=== PATIENT | male | born 1955 | race Caucasian/White ===

== ENCOUNTER 2018-02-11 00:34 | Inpatient (IN) | payer MEDICARE, OTHER ==
[~2018-02-11] VITALS: Ht 167.6 cm; Wt 92.5 kg
[2018-02-11] VITALS (9 sets, daily range): BP systolic 91–149; BP diastolic 63–88
[~2018-02-11 00:34] MED LIST: BACL10TA PO; CLON0.1T14 PO; CLOP75TA15 PO; ISOS60TA6 PO; LISI40TA4 PO; NEBI5TAB8 PO; NITR0.4T48 SL; OMEP20CA4 PO; RANO10003 PO; SIMV40TA5 PO; VALS160T2 PO
--- NOTE | 2018-02-11 00:40 | NUR ---
62 YO MALE BB SELF. PATIENT IS ALERT AND ORIENTED X 3, C/O CHEST PAIN. PATIENT AMBULATED TO ER BED, SKIN WARM AND DRY, RESP EVEN AND UNLABORED. AWAITING ORDERS FROM PROVIDER, WILL CONTINUE TO MONITOR
[2018-02-11] MEDS ORDERED: ASPIRIN 325 MG TABLET ONE (00:43)
[2018-02-11] MEDS ORDERED: ASPIRIN 325 MG TABLET PO ONE (01:00)
[2018-02-11 02:49] LABS: BASOPHILS % (AUTO) 0.3 % (0.0-2.0); EOSINOPHILS # (AUTO) 0.1 /CMM (0.0-0.7); EOSINOPHILS % (AUTO) 2.1 % (0.0-6.0); HEMATOCRIT 31 % (39-51); HEMOGLOBIN 10.2 g/dL (13.5-17.5); LYMPHOCYTES # (AUTO) 0.7 /CMM (0.8-4.8); LYMPHOCYTES % (AUTO) 15.4 % (20.0-44.0); MEAN CORPUSCULAR HEMOGLOBIN 25 PG (26.0-33.0); MEAN CORPUSCULAR HGB CONC 33 g/dl (31.0-36.0); MEAN CORPUSCULAR VOLUME 75 fL (80-96); MONOCYTES # (AUTO) 0.5 /CMM (0.1-1.30); MONOCYTES % (AUTO) 12.2 % (2.0-12.0); PLATELET COUNT (AUTO) 148 /CMM (150-450); RDW COEFFICIENT OF VARIATION 19.5 (11.5-15.0); RED BLOOD CELL COUNT(AUTO) 4.13 MIL/uL (4.5-6.0); WHITE BLOOD COUNT (AUTO) 4.3 K/uL (4.3-11.0)
[2018-02-11 02:59] LABS: CALCIUM, SERUM 8.6 mg/dL (8.5-10.1); CARBON DIOXIDE 24 mmol/L (21-32); CHLORIDE 105 mmol/L (98-107); CREATININE 1.2 mg/dL (0.6-1.3); GLUCOSE 98 mg/dL (74-106); POTASSIUM 3.8 mmol/L (3.5-5.1); SODIUM SERUM 136 mmol/L (136-145); UREA NITROGEN, BLOOD 24 mg/dL (7-18)
[2018-02-11 03:03] LABS: INR 1.03 (0.87-1.13)
[2018-02-11 03:07] LABS: TROPONIN I < 0.017 ng/mL (0.00-0.056)
[2018-02-11 03:11] LABS: B-TYPE NATRIURETIC PEPTIDE 54 PG/ML (0-125)
--- NOTE | 2018-02-11 03:24 | NUR ---
REPORT GIVEN TO RN FOR DANII
[2018-02-11] MEDS: CARVEDILOL 6.25 MG TABLET PO SCH ×3 (04:00→21:00)
[2018-02-11] MEDS ORDERED: NITROGLYCERIN 0.4 MG/TAB BOTTLE SL SCH (04:00)
[2018-02-11] MEDS ORDERED: ONDANSETRON HCL/PF 4 MG/2 ML VIAL IVP PRN (04:00)
--- NOTE | 2018-02-11 04:00 | NUR ---
ADMISSION NOTES: RECEIVED REPORT FROM TUNG HANSEN RN, PT ADMITTED FOR CHEST PAIN UNSTABLE ANGINA, PT A/O X3 BROUGHT TO THE UNIT VIA STRETCHER, PT HAS SERVICE DOG WHICH IS PRASHANTH. PER NURSING SUP ISH XIONG TO KEEP THE DOG IN THE ROOM WITH THE PT. ORIENTED PT TO UNIT POLICY AND HOURLY ROUNDING. PT REFUSING GOWN STATED "HE'S ALLERGIC TO IT", PT RECEIVED WITH LEFT LOWER ABDOMEN IV ACCESS G 22 PATENT AND FLUSHING WELL, ON HL. PT C/O 9/10 CHEST PAIN, LEFT SIDED STATED ITS PRESSURE LIE AND SHARP. SKIN ASSESSMENT PERFORMED AND NOTED ABDOMINAL BRUISES, AND PT CLAIMED IT'S FROM [facility] SHOT HE WAS ADMITTED IN [facility] LAST WEEK. PT ALSO BROUGHT ALL MEDICATIONS FROM HOME, WILL BE SEND TO PHARMACY. INVENTORY OF BELONGING COMPLETED BY MALIKA GALEAS. ON TELEMONITORING SINUS RHYTHM HR 72. CALLED EVS TO ASK FOR PAIR OF HARSHAD, HANDED OVER TO THE PT. SAFETY PRECAUTIONS FOR FALL INITIATED CALL LIGHT IN REACH, WILL CONTINUE MONITORING PT.
[2018-02-11] MEDS: NITROGLYCERIN 0.4 MG/TAB BOTTLE SL PRN ×3 (04:39→16:08)
--- NOTE | 2018-02-11 04:40 | NUR ---
PRN NITROSTAT SL: PT C/O CHEST PAIN STATED ITS PRESSURE LIKE SHARP, PRN NITROSTAT SL 0.4 MG ADMINISTERED TO THE PT, WILL COTNINEU TO MONITOR AND REASSESS
[2018-02-11] MEDS ORDERED: METO-358 PO ×2 (04:43→09:04)
[2018-02-11] MEDS ORDERED: FURO20TA4 PO (04:43)
[2018-02-11] MEDS ORDERED: IBUP-1955 PO (04:43)
[2018-02-11] MEDS ORDERED: ATOR80TA PO (04:43)
[2018-02-11] MEDS ORDERED: ISOS30TA6 PO (04:43)
[2018-02-11] MEDS ORDERED: TAMS0.4C34 PO (04:43)
[2018-02-11] MEDS ORDERED: HYOS0.1275 SL (04:43)
[2018-02-11] MEDS ORDERED: FINA5TAB3 PO (04:43)
[2018-02-11] MEDS ORDERED: ROSU20TA PO (04:43)
[2018-02-11] MEDS ORDERED: ASPI-1169 PO (04:43)
[2018-02-11] MEDS ORDERED: FERR325T23 PO (04:43)
[2018-02-11] MEDS ORDERED: POTA-10 PO (04:43)
[2018-02-11] MEDS ORDERED: GABA-534 PO (04:43)
--- NOTE | 2018-02-11 04:54 | NUR ---
PRN NITROGLYCERIN SL: PT STATED PAIN IS A LOT BETTER, /10 VS TAKEN AND RECORDED, PRN NITROGLYCERIN SL ADMINISTERED TO THE PT FOR C/O CHEST PAIN, WILL CONTINUE MONITORING PT
--- NOTE | 2018-02-11 05:05 | NUR ---
PAIN REASSESSMENT: PT STATED HIS PAIN WENT DOWN TO AT LEAST 5/10, STATED ITS A LOT BETTER. RT DOING EKG AT THIS TIME. ALSO RECEIVED PHONE CALL FROM NOLA MCNEIL FROM LAB STATED THERE'S AN ORDER FOR TROPONIN AT 0400, THAT THEY DID NOT DRAW BECAUSE SHE STATED ITS ONLY AN HOUR SINCE THEY DRAW THE LAST TROPONIN, BUT LAST DRAW OF TROP WAS DONE AT 0246AM, TROPONIN IS Q6HRS SERIES, SO NEXT SCHEDULE SHOULD BE 0900AM AND 1300 PER NOLA SHE WILL CHANGE THE TIME OF THE ORDER
--- NOTE | 2018-02-11 05:15 | NUR ---
RN NOTES: EKG SHOWS SINUS BRADYCARDIA WITH 1ST DEGREE AV BLOCK, PER CRISIS CLINICIAN ON TELE MONITORING IT SHOWS SINUS BRADYCARDIA WITH 1ST DEGREE AV BLOCK HR 55, PT SITTING IN BED, USING HIS TABLET, REMOVED HIS OXYGEN,
--- NOTE | 2018-02-11 05:30 | NUR ---
RN NOTES: KEPT PT NPO FOR NOW SINCE THERE WILL BE A CONSULTATION WITH TOPSTITCHER LOCKSTITCH, IN CASE TOPSTITCHER LOCKSTITCH WOULD LIKE ANY PROCEDURE OR TEST TO BE DONE. HUMAN DEVELOPMENT PROFESSOR AWARE
--- NOTE | 2018-02-11 06:10 | NUR ---
PRN ZOFRAN: PT C/O NAUSEA STATED NITROGYCERIN GIVES HIM NAUSEA AND MADE HIM FEEL DIZZY, PRN ZOFRAN ADMINISTERED VIA IVP
[2018-02-11] MEDS: MORPHINE SULFATE INJ 4 MG/ML DISP.SYRIN IV PRN ×2 (06:31→10:26)
--- NOTE | 2018-02-11 06:32 | NUR ---
PRN MORPHINE: PT C/O 01/31 LEFT SIDED CHEST PAIN STATED ITS PRESSURE LIKE PAIN, NON RADIATING, PT REFUSING TO TAKE NITROGLYCERIN SL HE STATED THAT "IT MAKES ME NAUSEATED AND DIZZY", PT REQUESTED FOR MORPHINE, PRN MORPHINE 1MG IVP ADMINISTERED TO THE PT AT THIS TIME, WILL CONTINUE MONITORING PT
--- NOTE | 2018-02-11 06:43 | NUR ---
RN CLOSING: PT IN BED, STILL REFUSING HOSPITAL GOWN, CURRENTLY WEARING HOSPITAL PAJAMA. PT REMAINS ON SINUS BRADYCARDIA WITH 1ST DEGREE AV BLOCK HR 56, PAIN MEDICATION GIVEN NOT TOO LONG AGO. IV ACCESS ON RIGHT LOWER ABDOMEN REMAINS PATENT AND FLUSHING WELL, ON HL. VS REMAINS STABLE, NEEDS ATTENDED. FOR CARDIO CONSULT TODAY. SAFETY PRECAUTIONS FOR FALL REMAINS ENGAGED, CALL LIGHT IN REACH, WILL ENDORSE TO DAY RN FOR DANII.
--- NOTE | 2018-02-11 07:55 | NUR ---
ROUGE PRESSER OPENING NOTES RECEIVED PT FROM NIGHTSHIFT NURSE IN STABLE CONDITION. PT IS A/O X4. NO SOB OR SIGNS OF DISTRESS NOTED. BREATHING IS EVEN AND UNLABORED. PT IS ON RA AND SATING WELL. HE DENIES ANY CHEST PAIN AT THIS TIME. HE IS SINUS BALDEMAR ON THE TELE MONITOR WITH A HR OF 57. IV TO RIGHT LOWER ABDOMEN IS NOTED TO BE PATENT AND INTACT. NO REDNESS OR SIGNS OF INFILTRATION NOTED. BED IN LOW LOCKED POSITION, SIDE RAILS UP X2, CALL LIGHT WITHIN REACH. WILL CONTINUE TO MONITOR.
[2018-02-11] MEDS ORDERED: VALSARTAN 80 MG TABLET PO SCH (09:00)
[2018-02-11] MEDS: ISOSORBIDE MONONITRATE (30MG) 30 MG TAB.SR.24H PO SCH (09:00)
[2018-02-11] MEDS: LISINOPRIL (20MG) 20 MG TABLET PO SCH (09:00)
[2018-02-11] MEDS ORDERED: SIMVASTATIN 40 MG TABLET PO SCH (09:00)
[2018-02-11] MEDS ORDERED: CLONIDINE HCL 0.1 MG TABLET PO SCH (09:00)
[2018-02-11] MEDS ORDERED: Medication Not On Formulary EA (Nebivolol Hcl (Bystolic) 5 MG) PO SCH (09:00)
--- NOTE | 2018-02-11 09:16 | NUR ---
CRITICAL CARE EDUCATOR NOTES: MED RECON PT'S HOME MEDICATION LIST WAS REVIEWED AND UPDATED BY THE MED RECON NURSE. DR REDDY MADE AWARE OF UPDATED AND ASKED TO REVIEW THE LIST
[2018-02-11] MEDS: ASPIRIN 81 MG TAB.CHEW PO SCH (09:47)
[2018-02-11] MEDS: PANTOPRAZOLE 40 MG TABLET.DR PO SCH (09:47)
[2018-02-11] MEDS: BACLOFEN (10 MG) 10 MG TABLET PO SCH (09:48)
[2018-02-11] MEDS: RANEXA 500 MG PO SCH ×2 (09:49→16:08)
[2018-02-11] MEDS: CLONIDINE HCL 0.1 MG TABLET PO SCH ×2 (09:49→16:07)
[2018-02-11] MEDS: CLOPIDOGREL BISULFATE 75 MG TABLET PO SCH (09:50)
--- NOTE | 2018-02-11 12:46 | NUR ---
MS RN NOTES: MEDICAL RECORDS DR. KUMAR HAS ASKED THAT THE PT'S CARDIAC HISTORY, STENT PROCEDURES, AND ALL PERTINENT MEDICAL RECORDS BE OBTAINED BY THE [facility] WHICH THE PT STATES THAT HE HAS HAD VARIOUS ADMISSIONS AND PROCEDURES. CONSENTS WERE OBTAINED BY THE PT TO RELEASE HIS MEDICAL INFORMATION AND FAXED TO EACH HOSPITAL. THESE HOSPITALS INCLUDED [facility], [facility], [facility], AND [facility]. CONFIRMATION OF FAX RECEIVED. WILL AWAIT FOR DOCUMENTS
--- NOTE | 2018-02-11 18:30 | NUR ---
MS RN CLOSING NOTES PT REMAINS IN STABLE CONDITION. ALL NEEDS WERE MET DURING SHIFT AND ORDERS CARRIED OUT ACCORDINGLY. CHEST PAIN MANAGED WITH MORPHINE ADMINISTRATION. IV REMAINS PATENT AND INTACT. SERVICE DOG AT BEDSIDE. WILL ENDORSE OT NIGHTSHIFT NURSE FOR DANII
[2018-02-11] MEDS: FENTANYL PF 100MCG/2ML AMPUL IV PRN (18:46)
--- NOTE | 2018-02-11 19:01 | NUR ---
Patient is alert and oriented. He lives at home with family. He is ambulatory and independent with adl's. Has no DME or homehealth reported. No dc planning needs identified at this time. Addendum: 02/11/18 at 1902 by LUCY COTTRE RN Amended: Links added.
--- NOTE | 2018-02-11 19:50 | NUR ---
MS/BEHAVIORAL HEALTH CASE MANAGER; RECEIVED PT'S REPORTS FROM THE DAY SHIFT RN FOR CONTINUITY OF CARE. AT THIS TIME PT IN BED SLEEPING BUT AROUSABLE AND VERBALLY RESPONSIVE. BREATHING NON LABORED. WITH O2 2L NC ON. HL ON RT SIDE OF THE ABDOMEN INTACT. BED ON LOWER POSITION AND LOCKED FOR SAFETY. UPPER PART OF BED SIDE RAILS ARE UP FOR SAFETY. WILL CONTINUE TO MONITOR.
[2018-02-11] MEDS: SIMVASTATIN 40 MG TABLET PO SCH (21:57)
--- NOTE | 2018-02-11 22:45 | NUR ---
MS/ADHESIVE BANDAGE MACHINE OPERATOR; PT CALL I CHECKED AND SAID HAVING CHEST PAIN AND ALSO PAIN LT UPPER ARM. BP 138/73, P 61, R 20, O2 SAT 100% ON O2 2L NC. I OFFERED NITRO BUT HE REFUSED AND WANTS FENTANYL IV AND I TOLD HIM IT IS NOT TIME YET WILL DUE AT 0046. PT SAID I WILL JUST WAIT FOR THE FENTANYL AT AFTER MIDNIGHT.
--- NOTE | 2018-02-12 00:45 | NUR ---
MS/TRUST OFFICER; PT CHECKED IN BED SLEEPING WITH O2 2L NC. BREATHING NON LABORED. WILL CONTINUE TO MONITOR.
--- NOTE | 2018-02-12 04:00 | NUR ---
MS/SETTER JUICE PACKAGING MACHINES; PT REFUSED FENTANYL 10 MCG IVP Q6 PRN . HL INFILTRATED.
[2018-02-12] MEDS: FENTANYL PF 100MCG/2ML AMPUL IV PRN ×2 (04:12→11:56)
[2018-02-12] MEDS: NITROGLYCERIN 0.4 MG/TAB BOTTLE SL PRN ×2 (04:27→22:00)
--- NOTE | 2018-02-12 04:30 | NUR ---
MS/PRODUCT SAFETY ADMINISTRATOR ; C/O CHEST PAIN TO BP 124/ 75 , HR 61, NITRO 0.4 MG 1 TAB. SL GIVEN.
--- NOTE | 2018-02-12 07:00 | NUR ---
MS/CERTIFIED SKI PATROLLER; SLEPT AT GOOD INTERVALS. BREATHING NON LABORED. WILL CONTINUE TO MONITOR. WILL ENDORSE TO THE DAY SHIFT NURSE FOR CONTINUITY OF CARE.
--- NOTE | 2018-02-12 07:13 | NUR ---
MS RN OPENING NOTES RECEIVED PT FROM NIGHTSHIFT NURSE IN STABLE CONDITION. PT IS A/O X4. NO SOB OR SIGNS OF DISTRESS NOTED. BREATHING IS EVEN AND UNLABORED. PT IS ON RA AND SATING WELL. HE DENIES ANY CHEST PAIN AT THIS TIME. IV TO RIGHT LOWER ABDOMEN IS NOTED TO BE PATENT AND INTACT. NO REDNESS OR SIGNS OF INFILTRATION NOTED. BED IN LOW LOCKED POSITION, SIDE RAILS UP X2, CALL LIGHT WITHIN REACH. WILL CONTINUE TO MONITOR.
[2018-02-12 08:00] VITALS: BP 147/85
[2018-02-12] MEDS: ISOSORBIDE MONONITRATE (30MG) 30 MG TAB.SR.24H PO SCH (08:44)
[2018-02-12] MEDS: CLOPIDOGREL BISULFATE 75 MG TABLET PO SCH (08:44)
[2018-02-12] MEDS: ASPIRIN 81 MG TAB.CHEW PO SCH (08:44)
[2018-02-12] MEDS: PANTOPRAZOLE 40 MG TABLET.DR PO SCH (08:44)
[2018-02-12] MEDS: RANEXA 500 MG PO SCH ×2 (08:44→16:41)
[2018-02-12] MEDS: CLONIDINE HCL 0.1 MG TABLET PO SCH ×2 (08:45→16:41)
[2018-02-12] MEDS: BACLOFEN (10 MG) 10 MG TABLET PO SCH (08:45)
[2018-02-12] MEDS: CARVEDILOL 6.25 MG TABLET PO SCH ×2 (08:45→22:07)
--- NOTE | 2018-02-12 09:21 | NUR ---
MS DOMINIC NOTES: CARVEDILOL ADMINISTRATION 12.5 [place] [address] [address] PT'S [address] ANGIOGRAM. DR KUMAR ORDERED ANOTHER DOSE OF CARVEDILOL 25MG TO BE GIVEN NOW TO FURTHER PREPARE THE PT AND CHANGED THE PRECEDING DOSES TO CARVEDILOL 25MG BID. PT'S CURRENT BP IS 132/82 WITH A HR OF 65 Addendum: 02/12/18 at 0938 by MICHELL JOHNSTON RN PLEASE DISREAGRD THIS NOTE IT WAS INTENDED FOR A DIFFERENT PT
[2018-02-12] MEDS: LISINOPRIL (20MG) 20 MG TABLET PO SCH (09:47)
[2018-02-12] MEDS: AMLODIPINE BESYLATE 10 MG TABLET PO SCH (09:47)
[2018-02-12] MEDS ORDERED: methylPREDNISolone SOD SUCC 125 MG/2ML VIAL IV ONE (10:00)
--- NOTE | 2018-02-12 10:54 | NUR ---
MS RN NOTES PT ASKED IF HE CAN HAVE A TURKEY SANDWICH AND A COKE. PT WAS ADVISED THAT A COKE IS NOT APART OF HIS CARDIAC DIET DUE TO THE CAFFEINE AND PT'S CARDIAC HISTORY. PT CALLED HE DOCKING SAW OPERATOR JAQUAN TO REQUEST IT FROM HER/ PER JAQUAN, "I TOLD HIM THAT I CAN NOT GIVE HIM A COKE BECAUSE OF HIS DIET AND HE BEGAN TO YELL AT ME AND STATE THAT IF I DON'T GET IT, HE WILL FIND SOMEONE TO BRING ONE FOR HIM". THE PT THEN CAME TO THE NURSES STATION AND COMPLAINED TO VIC THE CHARGE NURSE IN REGARDS TO THIS MANNER. VIC RESTATED WHAT WAS ADVISED BY BOTH MYSELF AND THE DOCKING SAW OPERATOR. THE PT THEN STATED "I HAVE GONE TO DOCTORS IN [place] AND ALL HAVE GIVEN ME WHAT I WANTED, I WILL LEAVE AMA IF I DON'T GET MY GODDAMN COKE". HE THEN PROCEEDED TO MESSAGE AND CALL THE THE EXECUTIVES. PASTOR THE NURSING BOAT DRIVER MADE AWARE
[2018-02-12 12:46] LABS: BASOPHILS # (AUTO) 0.1 /CMM (0.0-0.2); BASOPHILS % (AUTO) 1.8 % (0.0-2.0); EOSINOPHILS % (AUTO) 0.6 % (0.0-6.0); HEMATOCRIT 36 % (39-51); HEMOGLOBIN 11.8 g/dL (13.5-17.5); LYMPHOCYTES # (AUTO) 0.7 /CMM (0.8-4.8); MEAN CORPUSCULAR HEMOGLOBIN 25 PG (26.0-33.0); MEAN CORPUSCULAR HGB CONC 33 g/dl (31.0-36.0); MEAN CORPUSCULAR VOLUME 75 fL (80-96); MONOCYTES # (AUTO) 0.3 /CMM (0.1-1.30); MONOCYTES % (AUTO) 4.6 % (2.0-12.0); PLATELET COUNT (AUTO) 135 /CMM (150-450); RDW COEFFICIENT OF VARIATION 18.2 (11.5-15.0); RED BLOOD CELL COUNT(AUTO) 4.79 MIL/uL (4.5-6.0); WHITE BLOOD COUNT (AUTO) 7.1 K/uL (4.3-11.0)
[2018-02-12 12:56] LABS: CALCIUM, SERUM 8.9 mg/dL (8.5-10.1); CREATININE 1.1 mg/dL (0.6-1.3); POTASSIUM 4.4 mmol/L (3.5-5.1)
[2018-02-12 12:57] LABS: PHOSPHORUS 2.5 mg/dL (2.5-4.9)
[2018-02-12 16:00] VITALS: BP 118/66
--- NOTE | 2018-02-12 16:22 | NUR ---
MS RN NOTES PT IS REFUSING PLANNED CARDIAC CATHETERIZATION THAT HAS BEEN SCHEDULED FOR 10:30 TOMORROW MORNING AT [facility]. PER PT, "I AM WORRIED THAT MY BLOOD PRESSURE WILL DROP DURING THE PROCEDURE, MY ANEURYSM RUPTURING AND THAT I AM NOT ON A HEART MONITOR. I HAVE GOOGLED THE RISKS OF THIS PROCEDURE AND ACCORDING TO THE [facility] , I AM AT A VERY HIGH RISK AND THAT I MAY ON THE TABLE." PT WAS VERY CONCERNED ABOUT HIS BLOOD PRESSURE DROPPING IT WAS 95/53 AFTER THE ADMINISTRATION OF HIS AM BLOOD PRESSURE MEDICATIONS. HE WAS SINCE PLACED IN [place] POSITION AND HIS BP WANT TO 121/66. HE WAS STILL CONCERNED AND INSTRUCTED TO STAY IN THAT POSITION BUT CONTINUES TO AMBULATE AND BE NONCOMPLIANT. HIS BLOOD PRESSURE WAS RECHECKED WITH THE AUTOMATIC BP MACHINE WHICH READ 139/77. A MANUAL BP WAS CHECKED TO FURTHER VERIFY BP READING AND RESULTED 137/71. THESE FINDINGS WERE RELAYED TO THE CHARGE NURSE WHO IS SET TO CALL DR. KUMAR TO NOTIFY HIM OF THE PT'S DECISION AND TRENDING BPS. JOSE THE HVAC DESIGN MECHANICAL ENGINEER WAS ALSO NOTIFIED OF PT'S CURRENT DECISION.
--- NOTE | 2018-02-12 16:42 | NUR ---
MS RN NOTES: DR. STACY KUMAR CALLED AND MADE AWARE THAT PT IS REFUSING TO PROCEED WITH THE CARDIAC CATH PROCEDURE AND TO NOTIFY DR. LAI OF CANCELATION.
--- NOTE | 2018-02-12 17:11 | NUR ---
MS RN NOTES: DR BARRY REDDY CONTACTED AND MADE AWARE OF DR. KUMAR'S SUGGESTION TO DISCHARGE. PT WAS AT THE NURSES STATION AT THIS TIME AND ASKED "AM I GETTING DISCHARGED?" HE WAS MADE AWARE THAT THE PRIMARY WAS CONTACTED AND THAT THERE IS A POSSIBILITY. HE THEN WENT TO HIS ROOM, CAME BACK 5 MINUTES AFTER AND STATED THAT HE HAS CALLED [employer] RIGHT[employer] AT [phone] TO APPEAL HIS DISCHARGE AND LEFT A MESSAGE. JOSE THE CHEMICAL PRODUCTION MACHINE OPERATOR MADE AWARE AND VERIFIED THAT THE PT HAS SIGNED HIS MEDICARE RIGHTS APPEAL FORM. PT WAS GIVEN A COPY OF THIS. MADE AWARE AND GAVE AN ORDER FOR DISCHARGE.
--- NOTE | 2018-02-12 18:46 | NUR ---
MS RN CLOSING NOTES PT REMAINS IN STABLE CONDITION. ALL NEEDS WERE MET DURING SHIFT AND ORDERS CARRIED OUT ACCORDINGLY. CHEST PAIN MANAGED WITH FEATURAL ADMINISTRATION. IV REMAINS PATENT AND INTACT. SERVICE DOG AT BEDSIDE. WILL ENDORSE OT NIGHTSHIFT NURSE FOR DANII
--- NOTE | 2018-02-12 19:25 | NUR ---
MS RN OPENING NOTES: RECEIVED PT IN BED AND IS AWAKE AT THIS TIME. PT IS A/OX3. PT HAS CHIHUAHUA DOG ON BED. PT HAS IV ON R LOWER ABDOMEN AND IS PATENT AND INTACT. CALL LIGHT WITHIN PT'S REACH. BED KEPT IN LOW, LOCKED POSITION, AND SIDE RAILS X 2UP. INSTRUCTED PT TO USE CALL LIGHT. WILL CONTINUE TO MONITOR PT.
[2018-02-12 20:00] VITALS: BP 130/64
[2018-02-12 20:29] VITALS: BP 111/60
[2018-02-12] MEDS: SIMVASTATIN 40 MG TABLET PO SCH (21:49)
--- NOTE | 2018-02-12 22:01 | NUR ---
MS RN NOTES: PT COMPLAINING OF CHEST PAIN RADIATING TO LEFT ARM. BP WAS 138/69 HR 83. PT GIVEN NITROSTAT 0.4MG SL. WILL CONTINUE TO MONITOR PT.
[2018-02-12 22:08] VITALS: BP 102/55
--- NOTE | 2018-02-12 22:08 | NUR ---
MS RN NOTES: PT VERBALIZED THAT CHEST PAIN HAS SUBSIDED AND NITROSTAT WORKED. BP IS NOW 102/55 HR 81 AND PULSE OX 95%. PT PLACED ON 2LPM VIA NC.
--- NOTE | 2018-02-12 22:30 | NUR ---
MS RN NOTES: PT UPSET THAT I TOOK PHOTOS OF HIS SKIN ISSUES RIGHT AFTER I HAVE TAKEN THEM. HE WOULD HAVE REFUSED WHILE I WAS TAKING THEM OR EVEN BEFORE I STARTED OR EVEN SAID ANYTHING . HE DID NOT SAY ANYTHING ABOUT NOT ALLOWING ME TO TAKE THEM. HE WANTED TO SEE POLICIES AND PROCEDURES OF WHY WE TAKE PHOTOS OF SKIN ISSUES ON Tuesday. EXPLAINED TO HIM THAT WE DO SO ON Tuesday. INFORMED CHARGE NURSE. CHARGE NURSE AWARE AND PROVIDED HIM WRITTEN POLICIES REGARDING TAKING PHOTOS.
[2018-02-13 04:31] VITALS: BP 134/70
--- NOTE | 2018-02-13 06:34 | NUR ---
MS RN CLOSING NOTES: PT AWAKE AT THIS TIME AND SITTING UP IN BED SCROLLING ON HIS TABLET. PT ON ROOM AIR. NO S/S OF DISTRESS NOTED AT THIS TIME. NO SOB NOTED. PT'S IV REMAINS INTACT. DOG REMAINS ON BED. CALL LIGHT WITHIN PT'S REACH. BED KEPT IN LOW, LOCKED POSITION, AND SIDE RAILS X 2UP. WILL ENDORSE TO AM NURSE FOR DANII.
--- NOTE | 2018-02-13 07:50 | NUR ---
RN OPENING NOTES RECEIVED PT. PT IS STABLE AND RESTING IN BED. A/OX3. PT HAS SERVICE DOG BEDSIDE. NO S/S OF RESP DISTRESS OR SOB. NO C/O PAIN AT THIS TIME. PER CARBIDE TOOL DIE MAKER REPORT, PT HAS APPEALED D/C ON 02/12/18, AWAITING UPDATE FROM CASE MANAGEMENT. IV ACCESS LOCATED ON RIGHT ABDOMEN 22TG CURRENTLY SL. SAFETY MEASURES IN PLACE, CALL LIGHT WITHIN REACH. WILL CONTINUE TO MONITOR.
[2018-02-13 08:00] VITALS: BP 141/84
[2018-02-13 08:17] LABS: CALCIUM, SERUM 9.7 mg/dL (8.5-10.1); CREATININE 1.1 mg/dL (0.6-1.3); POTASSIUM 4.7 mmol/L (3.5-5.1)
[2018-02-13] MEDS: RANEXA 500 MG PO SCH ×2 (08:32→17:39)
[2018-02-13] MEDS: BACLOFEN (10 MG) 10 MG TABLET PO SCH (08:33)
[2018-02-13] MEDS: PANTOPRAZOLE 40 MG TABLET.DR PO SCH (08:33)
[2018-02-13] MEDS: CARVEDILOL 6.25 MG TABLET PO SCH ×2 (08:33→21:23)
[2018-02-13] MEDS: AMLODIPINE BESYLATE 10 MG TABLET PO SCH (08:33)
[2018-02-13] MEDS: ASPIRIN 81 MG TAB.CHEW PO SCH (08:33)
[2018-02-13] MEDS: ISOSORBIDE MONONITRATE (30MG) 30 MG TAB.SR.24H PO SCH (08:33)
[2018-02-13 08:34] LABS: BASOPHILS # (AUTO) 0.1 /CMM (0.0-0.2); BASOPHILS % (AUTO) 0.6 % (0.0-2.0); HEMATOCRIT 36 % (39-51); HEMOGLOBIN 12.3 g/dL (13.5-17.5); LYMPHOCYTES # (AUTO) 0.4 /CMM (0.8-4.8); LYMPHOCYTES % (AUTO) 3.7 % (20.0-44.0); MEAN CORPUSCULAR HEMOGLOBIN 26 PG (26.0-33.0); MEAN CORPUSCULAR HGB CONC 34 g/dl (31.0-36.0); MEAN CORPUSCULAR VOLUME 75 fL (80-96); MONOCYTES % (AUTO) 8.7 % (2.0-12.0); NEUTROPHILS # (AUTO) 10.6 /CMM (1.8-8.9); PLATELET COUNT (AUTO) 97 /CMM (150-450); RDW COEFFICIENT OF VARIATION 18.6 (11.5-15.0); RED BLOOD CELL COUNT(AUTO) 4.77 MIL/uL (4.5-6.0); WHITE BLOOD COUNT (AUTO) 12.1 K/uL (4.3-11.0)
[2018-02-13] MEDS: CLOPIDOGREL BISULFATE 75 MG TABLET PO SCH (08:34)
[2018-02-13] MEDS: CLONIDINE HCL 0.1 MG TABLET PO SCH ×2 (08:34→17:39)
[2018-02-13] MEDS: LISINOPRIL (20MG) 20 MG TABLET PO SCH (08:34)
[2018-02-13] MEDS ORDERED: AMLO10TA2 PO (10:20)
[2018-02-13] MEDS ORDERED: LISI20TA61 PO (10:20)
[2018-02-13] MEDS ORDERED: CARV6.252 PO (10:20)
[2018-02-13] MEDS ORDERED: SIMV40TA5 PO (10:20)
[2018-02-13 11:50] LABS: LYMPHOCYTES % (MANUAL) 4 % (16-48); MONOCYTES % (MANUAL) 4 % (0-11.0); NEUTROPHILS % (MANUAL) 92 (42-76)
[2018-02-13 16:00] VITALS: BP 137/67
--- NOTE | 2018-02-13 18:30 | NUR ---
RN CLOSING NOTE PT IN BED RESTING. NO S/S OF RESP DISTRESS OR SOB. PT HAS NO C/O PAIN AT THIS TIME. ALL PT NEEDS ANTICIPATED AND MET. SAFETY MEASURES IN PLACE, CALL LIGHT WITHIN REACH. WILL ENDORSE TO PAPER PRODUCTS SUPERVISOR FOR DANII.
--- NOTE | 2018-02-13 19:15 | NUR ---
RN OPENING NOTES RECEIVED PATIENT IN BED, ALERT AND ORIENTED X 4, NO SOB, BREATHING EVEN AND UNLABORED AND IN NO ACUTE DISTRESS. ALL PATIENT'S NEEDS ATTENDED TO AT THIS TIME, CALL LIGHT WITHIN EASY REACH. WILL CONTINUE TO MONITOR.
[2018-02-13 20:00] VITALS: BP 116/68
[2018-02-13] MEDS: SIMVASTATIN 40 MG TABLET PO SCH (21:23)
--- NOTE | 2018-02-14 03:50 | NUR ---
RN NOTES NOTED PATIENT'S IV PERIPHERAL LINE TO BE DISLODGED. INFORMED PATIENT THAT AN IV LINE NEEDS TO BE STARTED BUT PATIENT INSISTS THAT HE DOESN'T WANT AN IV LINE TO BE STARTED AGAIN AND THAT HE DOESN'T NEED IT ANYMORE. EXPLAINED RISKS AND BENEFITS TO PATIENT X 3 BUT PATIENT IS STILL REFUSING AND VERBALIZED THAT HE IS ALREADY DISCHARGING IN THE MORNING. RESPECTED PATIENT'S DECISION.
--- NOTE | 2018-02-14 06:42 | NUR ---
RN CLOSING NOTES PATIENT IN BED, ASLEEP BUT EASILY AROUSABLE. PATIENT STILL REFUSING IV PERIPHERAL LINE INSERTION, EXPLAINED RISKS AND BENEFITS TO PATIENT BUT PATIENT CONTINUES TO REFUSE. ALL PATIENT'S NEEDS ATTENDED TO THROUGHOUT THE SHIFT, NO SOB NOTED, BREATHING EVEN AND UNLABORED. PLACED CALL LIGHT WITHIN EASY REACH AND BED IN LOW POSITION AND LOCKED IN PLACE. WILL ENDORSE TO AM SHIFT NURSE FOR CONTINUITY OF CARE.
--- NOTE | 2018-02-14 07:35 | NUR ---
RN OPENING NOTES PATIENT IN BED, AWAKE ALERT AND VERBALLY RESPONSIVE, ABLE TO MAKE NEEDS KNOWN. RESPIRATIONS EVEN AND UNLABORED, DENIES ANY PAIN OR DISCOMFORT AT THIS TIME. PATIENT STILL REFUSING IV PERIPHERAL LINE INSERTION, EXPLAINED RISKS AND BENEFITS TO PATIENT BUT PATIENT CONTINUES TO REFUSE. ALL PATIENT'S NEEDS ATTENDED . PLACED CALL LIGHT WITHIN EASY REACH AND BED IN LOW POSITION AND LOCKED IN PLACE, WILL CONTINUE TO MONITOR
[2018-02-14 08:00] VITALS: BP 157/76
[2018-02-14] MEDS: ASPIRIN 81 MG TAB.CHEW PO SCH (08:13)
[2018-02-14] MEDS: PANTOPRAZOLE 40 MG TABLET.DR PO SCH (08:14)
[2018-02-14] MEDS: BACLOFEN (10 MG) 10 MG TABLET PO SCH (08:14)
[2018-02-14] MEDS: CLOPIDOGREL BISULFATE 75 MG TABLET PO SCH (08:14)
[2018-02-14] MEDS: AMLODIPINE BESYLATE 10 MG TABLET PO SCH (08:14)
[2018-02-14] MEDS: ISOSORBIDE MONONITRATE (30MG) 30 MG TAB.SR.24H PO SCH (08:15)
[2018-02-14] MEDS: LISINOPRIL (20MG) 20 MG TABLET PO SCH (08:15)
[2018-02-14] MEDS: RANEXA 500 MG PO SCH ×2 (08:17→16:26)
[2018-02-14] MEDS: CLONIDINE HCL 0.1 MG TABLET PO SCH ×3 (09:20→16:27)
[2018-02-14] MEDS: CARVEDILOL 6.25 MG TABLET PO SCH ×2 (09:20→21:54)
[2018-02-14 16:00] VITALS: BP 106/56
--- NOTE | 2018-02-14 16:29 | NUR ---
RN NOTES CLONIDINE 0.2 MG NON ADMINISTERED PT REFUSED BP 113/62 HR 52 WILL CONTINUE TO MONITOR, MD AWARE
--- NOTE | 2018-02-14 16:39 | NUR ---
RN NOTES DUE MEDICATIONS GIVEN ORDERED, WILL CONTINUE TO MONITOR
--- NOTE | 2018-02-14 19:13 | NUR ---
MS RN NOTES RECEIVE PT IN BED A/O X 3, NO S/S OF DISTRESS, STABLE, SAFETY MEASURES IN PLACE, CALL LIGHT WITHIN REACH, WILL CONTINUE TO MONITOR
--- NOTE | 2018-02-14 19:17 | NUR ---
RN CLOSING NOTES PATIENT IN BED, AWAKE ALERT AND VERBALLY RESPONSIVE, ABLE TO MAKE NEEDS KNOWN. RESPIRATIONS EVEN AND UNLABORED, DENIES ANY PAIN OR DISCOMFORT AT THIS TIME. PATIENT STILL REFUSING IV PERIPHERAL LINE INSERTION, EXPLAINED RISKS AND BENEFITS TO PATIENT BUT PATIENT CONTINUES TO REFUSE. ALL PATIENT'S NEEDS ATTENDED . PLACED CALL LIGHT WITHIN EASY REACH AND BED IN LOW POSITION AND LOCKED IN PLACE,ENDORSED TO NEXT SHIFT FOR CONTINUITY OF CARE
[2018-02-14 20:00] VITALS: BP 111/60
[2018-02-14] MEDS: SIMVASTATIN 40 MG TABLET PO SCH (21:54)
--- NOTE | 2018-02-15 06:18 | NUR ---
MS RN NOTES PT IN BED ASLEEP AND EASILY AWAKEN, NOT IN DISTRESS, AM CARE PROVIDED. TOLERATING ROOM AIR 98%. STABLE CONDITION. NO ACUTE CHANGES THROUGHOUT THE SHIFT. KEPT CLEAN AND DRY AND COMFORT. NURSING CARE RENDERED. NEEDS ATTENDED AND ANTICIPATED. ON LOW BED TO ENSURE SAFETY, CALL LIGHT WITHIN REACH, WILL ENDORSE TO THE NEXT SHIFT CONTINUE PLAN OF CARE
[2018-02-15] MEDS: PANTOPRAZOLE 40 MG TABLET.DR PO SCH (07:30)
[2018-02-15] MEDS: CARVEDILOL 6.25 MG TABLET PO SCH (09:00)
[2018-02-15] MEDS: CLONIDINE HCL 0.1 MG TABLET PO SCH (09:00)
[2018-02-15] MEDS: RANEXA 500 MG PO SCH (09:03)
[2018-02-15 09:04] VITALS: BP 149/76
[2018-02-15] MEDS: ASPIRIN 81 MG TAB.CHEW PO SCH (09:04)
[2018-02-15] MEDS: ISOSORBIDE MONONITRATE (30MG) 30 MG TAB.SR.24H PO SCH (09:04)
[2018-02-15] MEDS: CLOPIDOGREL BISULFATE 75 MG TABLET PO SCH (09:04)
[2018-02-15] MEDS: AMLODIPINE BESYLATE 10 MG TABLET PO SCH (09:04)
[2018-02-15] MEDS: LISINOPRIL (20MG) 20 MG TABLET PO SCH (09:04)
[2018-02-15] MEDS: BACLOFEN (10 MG) 10 MG TABLET PO SCH (09:05)
--- NOTE | 2018-02-15 09:30 | NUR ---
RN NOTES PATIENT STATING "I WANT TO GO BEFORE NOON, I HAVE SOMEWHERE TO GO, I AM GOING TO [facility]". PATIENT WITH DISCHARGE ORDERS WILL CONTINUE TO ASSIST WITH DISCHARGE PROCESS, PATIENT REFUSING TO TAKE PICTURES OF SKIN AT THIS TIME NURSING EDUCATION REINFORCED, WILL CONTINUE TO MONITOR
--- NOTE | 2018-02-15 10:30 | NUR ---
AUDIT MANAGER NOTES PATIENT SITTING ON BED, AWAKE ALERT AND VERBALLY RESPONSIVE, ABLE TO MAKE NEEDS KNOWN. RESPIRATIONS EVEN AND UNLABORED, DENIES ANY PAIN OR DISCOMFORT AT THIS TIME. PATIENT WITH DISCHARGE ORDERS REFUSING TO TAKE PICTURES OF SKIN, NO IV ACCESS AT THIS TIME, ID BAND REMOVED. ALL DISCHARGE INSTRUCTIONS REVIEWED WITH PATIENT PT STATING" I ALREADY KNOW EVERYTHING, I WILL TAKE MY MEDICATIONS AND GO TO MY REGULAR DOCTOR, I ALREADY KNOW ALL THIS" EXPLAINED TO PATIENT CURRENT CHANGES TO MEDICATIONS.ALL PATIENT BELONGINGS ACCOUNTED FOR. PATIENT STATING "I NEED TO GET OUT OF HERE, I HAVE SOMEONE WAITING FOR ME" MEDICATIONS PICKED UP FROM PHARMACY AND RETURNED TO PATIENT X2 BAGS. PATIENT DISCHARGED IN STABLE CONDITION ORDERED, REFUSED COREG AND CLONIDINE RISKS AND BENEFITS EXPLAINED WITH NOTED VERBAL UNDERSTANDING .
== END 2018-02-15 10:30 | disposition home or self-care (01) | DRG 313 ==
LOC: ER 00:37 → TELE 03:33 → MED 10:50
PROVIDERS: ADMIT Internal Medicine; ATTEND Internal Medicine
DX: R07.9 Chest pain, unspecified (principal); I25.2 Old myocardial infarction; N17.9 Acute kidney failure, unspecified; I11.0 Hypertensive heart disease with heart failure; I50.9 Heart failure, unspecified; D63.8 Anemia in other chronic diseases classified elsewhere; E78.5 Hyperlipidemia, unspecified; Z85.6 Personal history of leukemia; Z88.0 Allergy status to penicillin; Z88.2 Allergy status to sulfonamides; N40.0 Benign prostatic hyperplasia without lower urinary tract symptoms; Z91.041 Radiographic dye allergy status; Z98.61 Coronary angioplasty status; I35.1 Nonrheumatic aortic (valve) insufficiency; I34.0 Nonrheumatic mitral (valve) insufficiency
CPT/HCPCS: 36415; 71045-TC; 80048-TC; 80061-TC; 83735-TC; 83880; 84100-TC; 84484-TC; 85025-TC; 85730-TC; 87081-TC; 93307-TC; A4606; J2270; J2405; J2930; J3010; J7030; Z7610

== ENCOUNTER 2018-04-04 22:22 | Inpatient (IN) | payer MEDICARE, OTHER ==
[~2018-04-04] VITALS: Ht 167.6 cm; Wt 90.7 kg
[~2018-04-04 22:22] MED LIST changes: +AMLO10TA6 PO; +ASPI-1169 PO; -BACL10TA PO; +CARV6.252 PO; -CLON0.1T14 PO; +FINA5TAB3 PO; +LISI20TA61 PO; -LISI40TA4 PO; +METO-358 PO; -NEBI5TAB8 PO; -OMEP20CA4 PO; +ROSU20TA PO; +TAMS0.4C34 PO; -VALS160T2 PO
[2018-04-04] MEDS ORDERED: ASPIRIN 325 MG TABLET ONE (22:48)
[2018-04-04] MEDS ORDERED: ASPIRIN 325 MG TABLET PO ONE (23:00)
--- NOTE | 2018-04-04 23:02 | NUR ---
Patient assigned to Tele 320-2, admitted by BERNY Ruiz, admitting dx Chest Pain
[2018-04-04 23:14] LABS: BASOPHILS % (AUTO) 0.2 % (0.0-2.0); EOSINOPHILS % (AUTO) 1.1 % (0.0-6.0); HEMATOCRIT 36 % (39-51); LYMPHOCYTES # (AUTO) 0.8 /CMM (0.8-4.8); LYMPHOCYTES % (AUTO) 10.6 % (20.0-44.0); MEAN CORPUSCULAR HGB CONC 33 g/dl (31.0-36.0); MEAN CORPUSCULAR VOLUME 78 fL (80-96); MONOCYTES # (AUTO) 0.6 /CMM (0.1-1.30); MONOCYTES % (AUTO) 8.1 % (2.0-12.0); PLATELET COUNT (AUTO) 239 /CMM (150-450); RDW COEFFICIENT OF VARIATION 17.4 (11.5-15.0); RED BLOOD CELL COUNT(AUTO) 4.65 MIL/uL (4.5-6.0); WHITE BLOOD COUNT (AUTO) 7.6 K/uL (4.3-11.0)
[2018-04-04 23:24] LABS: CALCIUM, SERUM 9.1 mg/dL (8.5-10.1); CARBON DIOXIDE 28 mmol/L (21-32); CHLORIDE 104 mmol/L (98-107); CREATININE 1.4 mg/dL (0.6-1.3); GLUCOSE 126 mg/dL (74-106); POTASSIUM 3.6 mmol/L (3.5-5.1); SODIUM SERUM 138 mmol/L (136-145); UREA NITROGEN, BLOOD 25 mg/dL (7-18)
[2018-04-04 23:35] LABS: TROPONIN I < 0.017 ng/mL (0.00-0.056)
[2018-04-04 23:36] LABS: B-TYPE NATRIURETIC PEPTIDE 30 PG/ML (0-125)
[2018-04-04 23:44] LABS: INR 1.01 (0.87-1.13)
[2018-04-04] MEDS ORDERED: GABA-534 PO (23:56)
[2018-04-04] MEDS ORDERED: CLON0.2T PO (23:56)
[2018-04-05] VITALS (7 sets, daily range): BP systolic 97–149; BP diastolic 58–79
--- NOTE | 2018-04-05 00:29 | NUR ---
REPORT GIVEN TO WICHO
--- NOTE | 2018-04-05 01:00 | NUR ---
MS/PORTABLE SAWYER ADMITTING NOTE Patient arrived onto the unit in stable condition, vital signs WNL. Skin assessment negative; initial physical assessment unremarkable. Patient was made comfortable in bed. Full medical history obtained. Patient is AAOx4, breathing on RA with no SOB, and no signs of acute distress. Medication list obtained, signed by patient, and meds taken to pharmacy. Patient belongings accounted for and form signed by patient. Patient has a service dog with him and provided a card for proof of service dog necessity. Patient currently has no IV site; could not be obtained by RNs in the ED or here on the unit. Rafa Ruiz NP is aware and gives his okay for no IV at this time. Patient's bed is in the low/locked position, two side rails up, call fowler within reach. Patient has been oriented to the room and unit and has no immediate needs or concerns at his time. Will continue to monitor.
[2018-04-05] MEDS ORDERED: ACETAMINOPHEN 325 MG TABLET PO PRN (02:30)
[2018-04-05] MEDS ORDERED: ONDANSETRON HCL/PF 4 MG/2 ML VIAL IVP PRN (02:30)
[2018-04-05] MEDS ORDERED: ZOLPIDEM TARTRATE 5 MG TABLET PO PRN (02:30)
[2018-04-05] MEDS ORDERED: MORPHINE SULFATE INJ 2 MG/ML DISP.SYRIN IV PRN (02:30)
[2018-04-05] MEDS ORDERED: MAGNESIUM HYDROXIDE 30 ML UDC PO PRN (02:30)
[2018-04-05] MEDS ORDERED: HYDROCODONE/APAP 5/325MG 1 EACH TABLET PO PRN (02:30)
[2018-04-05] MEDS: MAG HYDROX/AL HYDROX/SIMETH 30 ML UDC PO PRN (03:02)
[2018-04-05] MEDS: METOPROLOL SUCCINATE 50 MG TAB.SR.24H PO SCH (03:02)
--- NOTE | 2018-04-05 06:39 | NUR ---
COMMUNITY CHEST OFFICER NOTE - Lab phone call Received phone call from the lab stating that the patient is a hard stick, and they could not draw blood. log data technician stated that they will return after breakfast to try again.
--- NOTE | 2018-04-05 06:42 | NUR ---
MS/SHANK STAPLER CLOSING NOTE Patient was seen sitting upright in bed AAOx4, breathing on RA with no SOB, and no signs of acute distress. Patient slept intermittently overnight but remained in stable condition with no events or complaints. Patient does not have an IV site, which was okay'd by Rafa Ruiz. Service dog is at bedside. Bed is in the low/locked position, two side rails up, and call fowler within reach. Patient care endorsed to day shift RN.
--- NOTE | 2018-04-05 07:30 | NUR ---
NURSE RESEARCHER NOTES PT IN BED, AWAKE, ALERT AND ORIENTED, NO COMPLAINT OF PAIN OR ANY DISCOMFORT, RESPIRATIONS NORMAL, CALL LIGHT WITHIN REACH, SERVICE DOG SLEEPING IN HIS BED, NEEDS ATTENDED.
[2018-04-05] MEDS: PANTOPRAZOLE 40 MG TABLET.DR PO SCH (08:08)
[2018-04-05] MEDS: AMLODIPINE BESYLATE 10 MG TABLET PO SCH (08:21)
[2018-04-05] MEDS: FINASTERIDE (5 MG) 5 MG TABLET PO SCH (08:21)
[2018-04-05] MEDS: ASPIRIN 81 MG TAB.CHEW PO SCH (08:22)
[2018-04-05] MEDS: CLONIDINE HCL 0.1 MG TABLET PO SCH ×2 (08:22→21:00)
[2018-04-05] MEDS: GABAPENTIN 300 MG CAPSULE PO SCH ×2 (08:22→17:00)
[2018-04-05] MEDS: CLOPIDOGREL BISULFATE 75 MG TABLET PO SCH (08:22)
[2018-04-05] MEDS: LISINOPRIL (20MG) 20 MG TABLET PO SCH (08:23)
[2018-04-05] MEDS: ISOSORBIDE MONONITRATE (30MG) 30 MG TAB.SR.24H PO SCH (08:27)
[2018-04-05 08:58] LABS: CREATININE 1.2 mg/dL (0.6-1.3); POTASSIUM 4.1 mmol/L (3.5-5.1)
[2018-04-05] MEDS ORDERED: CARVEDILOL 6.25 MG TABLET PO SCH (09:00)
[2018-04-05 09:09] LABS: THYROID STIMULATING HORMONE 0.814 uIU/mL (0.358-3.74)
[2018-04-05] MEDS ORDERED: diphenhydrAMINE HCL 50 MG CAPSULE PO PRN (09:30)
--- NOTE | 2018-04-05 13:00 | NUR ---
COMMERCIAL CORRESPONDENT NOTES PT IN BED, ASLEEP, EASY TO AROUSE, PT SEEN BY DR. KUMAR EARLIER, CTA ORDERED, PT HARDSTICK, ORDER OBTAINED FROM DR. BEGUM TO INSERT MIDLINE, CHARGE NURSE AND APPRENTICE INFORMED.
[2018-04-05] MEDS ORDERED: LIDOCAINE HCL/MPF 1% 30 ML VIAL IJ ONE (14:30)
[2018-04-05] MEDS ORDERED: IOHEXOL-350 100 ML VIAL IV ONE (15:29)
[2018-04-05] MEDS ORDERED: methylPREDNISolone SOD SUCC 125 MG/2ML VIAL IV ONE (15:30)
[2018-04-05] MEDS ORDERED: diphenhydrAMINE HCL 50 MG/ML VIAL IV PRN (15:30)
--- NOTE | 2018-04-05 15:40 | NUR ---
SLABBER NOTES PT IN BED, AWAKE, NO COMPLAINT AT THIS TIME, MIDLINE AT RIGHT UPPER ARM INSERTED, TOLERATED PROCEDURE WELL, PT REQUESTING FOR METHYLPREDNISOLONE AND BENADRYL IV BEFORE CTA, DR. BEGUM GAVE ORDERS, MEDS GIVEN ORDERED, TOOK TO CT BY ALDAIR AND ICU NURSE, HEART MONITOR ON AT ALL TIMES.
--- NOTE | 2018-04-05 16:00 | NUR ---
ADULT AND PEDIATRIC NEUROLOGIST NOTES PT BACK FROM CT, PROCEDURE NOT DONE YET, CT STAFF AND ICU NURSE WILL TAKE HIM BACK FOR CTA AT 1715.
--- NOTE | 2018-04-05 17:00 | NUR ---
SHUTDOWN PLANNER NOTES NEURONTIN NOT GIVEN, PT NPO FOR CTA PROCEDURE.
[2018-04-05] MEDS ORDERED: METOPROLOL TARTRATE INJ 5 MG/5 ML AMPUL ONE (17:40)
--- NOTE | 2018-04-05 17:40 | NUR ---
SHUTDOWN COORDINATOR NOTES PT PICKED UP FOR CTA, IN STABLE CONDITION.
[2018-04-05] MEDS: IV NS 0.9% 1,000 ML IV PRN (18:13)
--- NOTE | 2018-04-05 18:16 | NUR ---
COMMERCIAL SERVICE TECHNICIAN NOTES PT IN BED, AWAKE, ALERT AND ORIENTED, NO COMPLAINT OF PAIN, BREATHING PATTERN NORMAL, EATING DINNER AT THIS TIME, SERVICE DOG SITTING IN HIS BED, CALL LIGHT PLACED WITHIN REACH, NEEDS ATTENDED.
--- NOTE | 2018-04-05 19:00 | NUR ---
RAISIN WASHER INITIAL NOTES: Received patient sitting up in bed, service dog at bedside. Breathing even and unlabored. No SOB, not in distress. No complaints of pain or discomfort at this time. quality assurance monitor final in place, SR 62 with BBB. Bed in low, locked position. Call fowler within reach. Patient stable as endorsed by the morning shift RN.
[2018-04-05] MEDS: SIMVASTATIN 40 MG TABLET PO SCH (21:30)
[2018-04-05] MEDS: TAMSULOSIN 0.4 MG CAP.SR.24H PO SCH (21:35)
--- NOTE | 2018-04-05 21:35 | NUR ---
mechanical research engineer Notes: Catapress not given, patient's BP is 97/58. Patient refused flomax despite of explaining medication indication and risk factors of not taking it.
[2018-04-06] VITALS (7 sets, daily range): BP systolic 104–150; BP diastolic 60–75
[2018-04-06] MEDS: METOPROLOL SUCCINATE 50 MG TAB.SR.24H PO SCH (02:00)
--- NOTE | 2018-04-06 06:20 | NUR ---
TELE PATIENT CLOSING NOTES: Patient in bed, awake, service dog at bedside. Breathing even and unlabored. Peripheral IV infusing at 75mL/hr. Tele monitor in place, Sinus Rhythm 65. No complaints of chest pain throughout the shift. All due medications given as ordered. All needs attended to. Call fowler within reach. Bed in low locked position. Will endorse to AM DOMINIC FOY.
--- NOTE | 2018-04-06 07:30 | NUR ---
RN MS NOTES PT IN BED, AWAKE, ALERT AND ORIENTED, NO COMPLAINT OF PAIN OR ANY DISCOMFORT, NO SOB, DOG SLEEPING AT THE FOOT OF PT'S BED, CALL LIGHT WITHIN REACH, NEEDS ATTENDED, PT REFUSED TO BE HOOKED UP WITH IV FLUIDS AT THIS TIME.
[2018-04-06] MEDS: LISINOPRIL (20MG) 20 MG TABLET PO SCH (09:00)
[2018-04-06] MEDS: CLONIDINE HCL 0.1 MG TABLET PO SCH ×2 (09:00→21:22)
[2018-04-06] MEDS: ISOSORBIDE MONONITRATE (30MG) 30 MG TAB.SR.24H PO SCH (09:00)
[2018-04-06] MEDS: AMLODIPINE BESYLATE 10 MG TABLET PO SCH (09:00)
[2018-04-06] MEDS ORDERED: ONDANSETRON 4 MG TAB.RAPDIS SL PRN (09:30)
[2018-04-06] MEDS: GABAPENTIN 300 MG CAPSULE PO SCH ×3 (09:38→17:17)
[2018-04-06] MEDS: ASPIRIN 81 MG TAB.CHEW PO SCH (09:38)
[2018-04-06] MEDS: PANTOPRAZOLE 40 MG TABLET.DR PO SCH (09:38)
[2018-04-06] MEDS: CLOPIDOGREL BISULFATE 75 MG TABLET PO SCH (09:38)
[2018-04-06] MEDS: FINASTERIDE (5 MG) 5 MG TABLET PO SCH (09:38)
[2018-04-06 10:20] LABS: HEMATOCRIT 38 % (39-51); HEMOGLOBIN 12.4 g/dL (13.5-17.5); LYMPHOCYTES # (AUTO) 0.5 /CMM (0.8-4.8); LYMPHOCYTES % (AUTO) 2.7 % (20.0-44.0); MEAN CORPUSCULAR HGB CONC 33 g/dl (31.0-36.0); MEAN CORPUSCULAR VOLUME 79 fL (80-96); MONOCYTES # (AUTO) 0.3 /CMM (0.1-1.30); MONOCYTES % (AUTO) 1.9 % (2.0-12.0); NEUTROPHILS # (AUTO) 17.3 /CMM (1.8-8.9); NEUTROPHILS % (AUTO) 95.4 % (43.0-81.0); PLATELET COUNT (AUTO) 235 /CMM (150-450); RDW COEFFICIENT OF VARIATION 17.6 (11.5-15.0); RED BLOOD CELL COUNT(AUTO) 4.81 MIL/uL (4.5-6.0); WHITE BLOOD COUNT (AUTO) 18.1 K/uL (4.3-11.0)
[2018-04-06 10:30] LABS: CALCIUM, SERUM 9.2 mg/dL (8.5-10.1); CREATININE 1.2 mg/dL (0.6-1.3); POTASSIUM 4.3 mmol/L (3.5-5.1)
--- NOTE | 2018-04-06 11:30 | NUR ---
RN MS NOTES PT IN BED, AWAKE, PT SEEN BY DR. KUMAR AND DR. BEGUM, PLAN OF CARE DISCUSSED WITH PT, PT ALSO SEEN BY JOE, [employer] D[employer] OPERATOR, ALL NEEDS ATTENDED.
[2018-04-06] MEDS ORDERED: QUETIAPINE FUMARATE 25 MG TABLET PO PRN (17:00)
--- NOTE | 2018-04-06 17:06 | NUR ---
RN MS NOTES PT SEEN BY DR. RAMIREZ, ORDERS GIVEN.
--- NOTE | 2018-04-06 18:18 | NUR ---
RN MS NOTES PT IN BED, AWAKE, ALERT AND ORIENTED, WALKING AROUND HIS ROOM AND THE HALLWAY, NO COMPLAINT OF PAIN, RESPIRATIONS NORMAL, PT DOES NOT WANT TO BE HOOKED WITH HIS IV FLUIDS AT THIS TIME HE IS BUSY WALKING AROUND HIS ROOM AND SPEAKING ON THE PHONE, EXPLAINED BENEFITS OF IV FLUIDS, STILL REFUSED TO BE HOOKED UP, PT IS EATING AND DRINKING WELL, CALL LIGHT WITHIN REACH, NEEDS ATTENDED.
--- NOTE | 2018-04-06 19:00 | NUR ---
MS RN INITIAL NOTES: Received patient sitting up in bed, alert, oriented x 4. Breathing even and unlabored. No complaints of pain or discomfort as of this time. IV infusing at 75mL/hr, but asked to be unhooked because he wants to walk around a little bit in his room. Service dog at bedside. Call fowler within reach. Bed in low locked position. Patient stable as endorsed by the morning shift RN.
[2018-04-06] MEDS: SIMVASTATIN 40 MG TABLET PO SCH (21:22)
[2018-04-06] MEDS: TAMSULOSIN 0.4 MG CAP.SR.24H PO SCH (21:25)
--- NOTE | 2018-04-06 21:25 | NUR ---
RN NOTES: Patient refused flomax despite explanation of the medication's uses and the risk of not taking it
[2018-04-06] MEDS: IV NS 0.9% 1,000 ML IV PRN (23:35)
--- NOTE | 2018-04-06 23:40 | NUR ---
RN NOTES: Patient came up and asked about what the Psych doctor wrote in the notes. Patient seems upset that a psychiatrist saw him. He said "he does not need it. He is not sick in the head". Ayana ALFARO and I asked what the doctor told him. He stated that Doctor was just asking a few questions but he wants to know what the doctor wrote about him. Told him that he does not meet criteria for 5150, as per doctor. He was quite happy and satisfied with that.
[2018-04-07 00:37] VITALS: BP 123/66
[2018-04-07] MEDS: METOPROLOL SUCCINATE 50 MG TAB.SR.24H PO SCH (01:31)
--- NOTE | 2018-04-07 03:00 | NUR ---
RN NOTES AFTER GIVING MORPHINE , PT SKED FOR ZOFRAN , ZOFRAN 4 MG ODT WAS GIVEN ORDERED
--- NOTE | 2018-04-07 03:00 | NUR ---
RN NOTES COMPLAINED OF CHEST PAIN-MORPHINE 4 MG IV GIVEN ORDERED , V/S STABLE, PUT PT. ON OXYGEN @ 2L. CHARGE NURSE MADE AWARE, STAT EKG WAS ORDERED, SR WITH BBB , SAME RESULT HIS PREVIOUS EKG.
--- NOTE | 2018-04-07 04:00 | NUR ---
RN NOTES CHECKED PT. , PT IS ALREADY SLEEPING , WILL CONTINUE TO MONITOR
[2018-04-07] MEDS: MAG HYDROX/AL HYDROX/SIMETH 30 ML UDC PO PRN (05:28)
--- NOTE | 2018-04-07 05:30 | NUR ---
MS RN NOTES: Patient stated that he has extra gas on his stomach. Maalox given as ordered.
--- NOTE | 2018-04-07 07:00 | NUR ---
RN CLOSING NOTES: Patient sitting up in bed. Alert oriented x 4. Service dog at bedside. Breathing even and unlabored. No complaints of pain or discomfort as of this time. Call fowler within reach. Bed in low locked position. Will endorse shelly to morning shift RN.
--- NOTE | 2018-04-07 07:47 | NUR ---
RN OPENING NOTES PATIENT AWAKE, RESTING COMFORTABLY IN BED, RESPIRATIONS EVEN AND UNLABORED, ABLE TO MAKE NEEDS KNOWN, DENIES ANY PAIN OR DISCOMFORT AT THIS TIME. IV ACCESS PATENT AND INTACT NO REDNESS OR INFILTRATION NOTED. NPO X MEDS AT THIS TIME FOR PROCEDURE, SAFETY MEASURES IN PLACE, KEPT CLEAN DRY AND COMFORTABLE CALL LIGHT WITHIN EASY REACH WILL CONTINUE TO MONITOR
[2018-04-07 08:00] VITALS: BP 131/72
[2018-04-07] MEDS ORDERED: REGADENOSON 0.4 MG/5 ML DISP.SYRIN IVP ONE (08:00)
[2018-04-07] MEDS: CLONIDINE HCL 0.1 MG TABLET PO SCH ×3 (09:00→21:17)
[2018-04-07] MEDS: GABAPENTIN 300 MG CAPSULE PO SCH ×2 (09:29→17:00)
[2018-04-07] MEDS: ISOSORBIDE MONONITRATE (30MG) 30 MG TAB.SR.24H PO SCH (09:29)
[2018-04-07] MEDS: PANTOPRAZOLE 40 MG TABLET.DR PO SCH (09:29)
[2018-04-07] MEDS: FINASTERIDE (5 MG) 5 MG TABLET PO SCH (09:30)
[2018-04-07] MEDS: ASPIRIN 81 MG TAB.CHEW PO SCH (09:30)
[2018-04-07] MEDS: AMLODIPINE BESYLATE 10 MG TABLET PO SCH (09:30)
[2018-04-07] MEDS: CLOPIDOGREL BISULFATE 75 MG TABLET PO SCH (09:30)
[2018-04-07] MEDS: LISINOPRIL (20MG) 20 MG TABLET PO SCH (11:28)
[2018-04-07 16:00] VITALS: BP 127/66
[2018-04-07 16:02] LABS: FERRITIN 23 ng/mL (8-388)
[2018-04-07 16:03] LABS: IRON, SERUM 30 ug/dl (50-175); TOTAL IRON BINDING CAPACITY 374 ug/dl (250-450)
[2018-04-07] MEDS: IV NS 0.9% 1,000 ML IV PRN (18:45)
--- NOTE | 2018-04-07 18:59 | NUR ---
RN CLOSING NOTES PATIENT AWAKE, RESTING COMFORTABLY IN BED, RESPIRATIONS EVEN AND UNLABORED, ABLE TO MAKE NEEDS KNOWN, DENIES ANY PAIN OR DISCOMFORT AT THIS TIME. IV ACCESS PATENT AND INTACT NO REDNESS OR INFILTRATION NOTED. SAFETY MEASURES IN PLACE, KEPT CLEAN DRY AND COMFORTABLE CALL LIGHT WITHIN EASY REACH WILL CONTINUE TO MONITOR AND ENDORSE TO NEXT SHIFT FOR CONTINUITY OF CARE, PT WITH DC TO HOME ORDER, PT APPEALING TO MEDICARE AT THIS TIME DR. SHY TORRES
--- NOTE | 2018-04-07 19:35 | NUR ---
MS RN NOTE RECEIVED PATIENT FROM DAY SHIFT, PATIENT IS ALERT AND ORIENTEDX4, RESTING IN BED COMFORTABLY WITH HIS SERVICE DOG AT BEDSIDE. NO SOB OR CHEST PAIN REPORTED AT THIS TIME. RIGHT UPPER ARM MID LINE IS PATENT AND INTACT, FLUID IS RUNNING. PT HAS DC ORDER BUT APPEALED TO MEDICARE, MD AWARE PER DAY SHIFT. SRX2, BED IN LOW POSITION, CALL LIGHT WITHIN REACH, WILL CONTINUE TO MONITOR PATIENT.
[2018-04-07 20:00] VITALS: BP 124/63
[2018-04-07] MEDS: TAMSULOSIN 0.4 MG CAP.SR.24H PO SCH (21:16)
[2018-04-07] MEDS: SIMVASTATIN 40 MG TABLET PO SCH (21:17)
[2018-04-08] MEDS: METOPROLOL SUCCINATE 50 MG TAB.SR.24H PO SCH (02:30)
[2018-04-08] MEDS: IV NS 0.9% 1,000 ML IV PRN (06:15)
--- NOTE | 2018-04-08 07:25 | NUR ---
MS RN NOTE PATIENT IS RESTING IN BED COMFORTABLY, NO ACUTE DISTRESS NOTED THROUGHOUT THE SHIFT. NO S/S OF RESPIRATORY DISTRESS OR PAIN PRESENT. ENDORSED TO DAY SHIFT NURSE FOR DANII.
--- NOTE | 2018-04-08 07:34 | NUR ---
RN OPENING NOTES RECEIVED PT. PT IS STABLE AND RESTING IN BED. A/OX4. NO S/S OF RESP DISTRESS OR SOB. NO C/O PAIN AT THIS TIME. PT HAS HIS DOG AT BEDSIDE. PER COMMUNICATIONS TECHNOLOGIST REPORT, PT IS APPEALING D/C, WILL F/U WITH CASE MANAGEMENT. D/C ORDER PLACED OF 04/07/18. SAFETY MEASURES IN PLACE, CALL LIGHT WITHIN REACH. WILL CONTINUE TO MONITOR.
[2018-04-08 08:00] VITALS: BP 120/67
[2018-04-08] MEDS: AMLODIPINE BESYLATE 10 MG TABLET PO SCH (09:00)
[2018-04-08] MEDS: ISOSORBIDE MONONITRATE (30MG) 30 MG TAB.SR.24H PO SCH (09:00)
[2018-04-08] MEDS: GABAPENTIN 300 MG CAPSULE PO SCH ×2 (09:00→16:54)
[2018-04-08] MEDS: LISINOPRIL (20MG) 20 MG TABLET PO SCH (09:00)
[2018-04-08] MEDS: CLONIDINE HCL 0.1 MG TABLET PO SCH ×2 (09:00→20:46)
[2018-04-08] MEDS: FINASTERIDE (5 MG) 5 MG TABLET PO SCH (09:08)
[2018-04-08] MEDS: PANTOPRAZOLE 40 MG TABLET.DR PO SCH (09:08)
[2018-04-08] MEDS: ASPIRIN 81 MG TAB.CHEW PO SCH (09:08)
[2018-04-08] MEDS: CLOPIDOGREL BISULFATE 75 MG TABLET PO SCH (09:09)
--- NOTE | 2018-04-08 15:56 | NUR ---
RN NOTES PT TAKEN OUTSIDE OF HOSPITAL TO WALK DOG WITH TICKET CLERK. WILL CONTINUE TO MONITOR .... ALL NEEDS MET.
[2018-04-08 16:00] VITALS: BP 124/79
--- NOTE | 2018-04-08 19:33 | NUR ---
RN CLOSING NOTES PT IN BED RESTING. NO S/S OF SOB OR RESP DISTRESS. NO C/O PAIN AT THIS TIME. ALL PT NEEDS ANTICIPATED AND MET. SAFETY MEASURES IN PLACE, CALL LIGHT IN REACH. WILL ENDORSE TO ASSOCIATE PROFESSOR OF ART FOR DANII.
--- NOTE | 2018-04-08 19:44 | NUR ---
MS/RN OPENING NOTES PATIENT SITTING IN BED, WITH SERVICE DOG, REPORTED SOME LIGHT HEADEDNESS, CHECK B/P AT 130/70, OFFERED FLUIDS, DENIES ANY PLAIN BUT SOME CONCERNS WITH LOW B/P. SKIN WARM TO TOUCH, RESPIRATIONS EVEN AND UNLABORED. AMBULATORY WITH SUPERVISION, WILL MONITOR. RECEIVED ENDORSEMENT FROM AM RN FOR DANII.
[2018-04-08 20:00] VITALS: BP 171/71
[2018-04-08 21:00] VITALS: BP 134/70
[2018-04-08] MEDS: SIMVASTATIN 40 MG TABLET PO SCH (21:12)
[2018-04-08] MEDS: TAMSULOSIN 0.4 MG CAP.SR.24H PO SCH (21:13)
[2018-04-09] MEDS: NITROGLYCERIN 0.4 MG/TAB BOTTLE SL SCH ×2 (01:08→09:27)
--- NOTE | 2018-04-09 01:22 | NUR ---
PATIENT RELIVE CHEST PAIN AFTER 1 NITROGLYCERIN GIVEN S/L, DECREASED B/P TO 116/57 FROMB/P 135/70/ REPORTED 4/10 PAIN BUT TOLERABLE.
[2018-04-09] MEDS: METOPROLOL SUCCINATE 50 MG TAB.SR.24H PO SCH (02:05)
--- NOTE | 2018-04-09 06:29 | NUR ---
MS/RN NOTES PATIENT ABLE TO SLEEP ATLEAST 4 HOURS, KEPT WITH ACTIVITY W/RADIO AND WITH ON GOING DISCOMFORT PRESSURE FELT ON THE CHEST RELIEVED WITH ONE NITRO SL, AND ELEVATED B/P DURING STRT OF SHIFT AND RELIEVED WITH MORPHINE IV 4MG, B/P IN LOW SBP OF 120/70 WITH PULSE AT 59. RESPIRATIONS EVEN AND UNLABORED AND REPORTED IMPROVED CONDITION, WILL ENDORSE TO AM RN FOR DANII. OFFERED FLUIDS, CALL LIGHTS WITHIN REACH, BED IN LOCK POSITION. WILL MONITOR AND ENDORSE TO AM RN FOR DANII. MIDLINE AC, PATENT AND ABLE TO FLUSH.
--- NOTE | 2018-04-09 07:37 | NUR ---
RN OPENING NOTES RECEIVED PT. PT IS STABLE AND RESTING IN BED. A/OX4. NO S/S OF RESP DISTRESS OR SOB. NO C/O PAIN AT THIS TIME. PT HAS HIS DOG AT BEDSIDE. PT'S D/C APPEAL CONTINUING TODAY, WILL F/U WITH CASE MANAGEMENT. D/C ORDER PLACED OF 04/07/18. PT CURRENTLY REQUESTING MONEY FROM STAFF IN ORDER TO USE PREPAID PHONE, ROOM PHONE OFFERED HOWEVER PT REFUSED. SAFETY MEASURES IN PLACE, CALL LIGHT WITHIN REACH. WILL CONTINUE TO MONITOR.
[2018-04-09 08:00] VITALS: BP 128/82
[2018-04-09] MEDS: FINASTERIDE (5 MG) 5 MG TABLET PO SCH (08:41)
[2018-04-09] MEDS: PANTOPRAZOLE 40 MG TABLET.DR PO SCH (08:41)
[2018-04-09] MEDS: ASPIRIN 81 MG TAB.CHEW PO SCH (08:41)
[2018-04-09] MEDS: CLOPIDOGREL BISULFATE 75 MG TABLET PO SCH (08:41)
[2018-04-09] MEDS: GABAPENTIN 300 MG CAPSULE PO SCH ×2 (08:47→17:00)
[2018-04-09] MEDS: CLONIDINE HCL 0.1 MG TABLET PO SCH ×2 (08:47→20:40)
[2018-04-09] MEDS: ISOSORBIDE MONONITRATE (30MG) 30 MG TAB.SR.24H PO SCH (08:47)
[2018-04-09] MEDS: LISINOPRIL (20MG) 20 MG TABLET PO SCH (08:48)
[2018-04-09] MEDS: AMLODIPINE BESYLATE 10 MG TABLET PO SCH (08:48)
--- NOTE | 2018-04-09 11:03 | NUR ---
RN NOTES PT HAD C/O CHEST PAIN. SL NITRO GIVEN, CP RESOLVED ACCORDING TO PT SELF-REPORT.
[2018-04-09 16:00] VITALS: BP 133/63
--- NOTE | 2018-04-09 18:33 | NUR ---
RN CLOSING NOTE PT IN BED RESTING. NO S/S OF RESP DISTRESS OR SOB. NO C/O PAIN AT THIS TIME. PT FIRST D/C APPEAL PASSED THROUGH MEDICAL, NEW D/C NOTE PLACED BY BERNY HUERTA. HOWEVER, CASE MANAGEMENT HAS INSTRUCTED NOT TO D/C PATIENT. SAFETY MEASURES IN PLACE, CALL LIGHT WITHIN REACH. WILL ENDORSE TO SAFETY ADMIN ASSISTANT FOR DANII.
--- NOTE | 2018-04-09 19:52 | NUR ---
MS/RN OPENING NOTES PATIENT IN BED, ALERT, ORIENTED X3, ABLE TO VERBALIZE NEEDS AT ALL TIMES, RESPIRATIONS EVEN AND UNLABORED, RECEIVED ENDORSEMENT FROM AM RN FOR DANII, PATIENT WAS GIVEN NITRO, WITH SOME PRESSURE IN HIS CHEST AND RELIVED BY NITRO, WILL MONITOR FOR ANY PAIN AND CONCERNS, PROVIDED FLUID AND SNACKS, CALL LIGHTS WITHIN REACH. BED IN LOCK POSITION, LEIGHANN MID LINE PICC PATENT WILL MONITOR.
[2018-04-09 19:57] VITALS: BP 147/80
[2018-04-09 19:59] VITALS: BP 147/80
[2018-04-09] MEDS: SIMVASTATIN 40 MG TABLET PO SCH (21:21)
[2018-04-09] MEDS: TAMSULOSIN 0.4 MG CAP.SR.24H PO SCH (21:21)
--- NOTE | 2018-04-09 22:10 | NUR ---
MS/RN NOTES MD VAZQUEZ WAS INFORMED PATIENT PREFERED TO HAVE MORPHINE DOSE REDUCED FROM 4MG TO 2 MG IVP, PATIENT REPORTED PAIN OF 8/10 I, UNRELIEVED WITH NITROSTAT PER PATIENT AND RPORTED SOME PRESSURE PAIN AND MD ORDER CHANGE REQUESTED.
[2018-04-09] MEDS ORDERED: MORPHINE SULFATE INJ 2 MG/ML DISP.SYRIN IV PRN (22:30)
--- NOTE | 2018-04-10 00:56 | NUR ---
MS/RN NOTES PATIENT REPORTED CHEST PAIN AND PRESSURE, NITROGLYCERIN NEEDED TO ADMINISTER, PATIENT AGREED .
[2018-04-10] MEDS: NITROGLYCERIN 0.4 MG/TAB BOTTLE SL SCH ×6 (00:58→20:57)
[2018-04-10] MEDS ORDERED: MORPHINE SULFATE INJ 4 MG/ML DISP.SYRIN ONE (01:25)
--- NOTE | 2018-04-10 01:31 | NUR ---
administer ivp MORPHINE 2MG PER MD ORDER, WASTE REMAINING 2MG . FOR PATIENT WITH CHEST PAIN
[2018-04-10] MEDS: MORPHINE SULFATE INJ 4 MG/ML DISP.SYRIN IV PRN ×3 (01:50→09:56)
[2018-04-10] MEDS: METOPROLOL SUCCINATE 50 MG TAB.SR.24H PO SCH (02:13)
--- NOTE | 2018-04-10 02:41 | NUR ---
ms/rn notes reported upset stomach, requested for maalox.
[2018-04-10] MEDS: MAG HYDROX/AL HYDROX/SIMETH 30 ML UDC PO PRN ×3 (02:43→16:02)
--- NOTE | 2018-04-10 04:01 | NUR ---
ms/rn notes patient reported pressure in chest, moaning and guarding, administer nitro subligual, will monitor effectiveness, patient reported pain comes and go .b/p check 157/85, informed next pain medication due at 0600.
--- NOTE | 2018-04-10 04:33 | NUR ---
MS/RN NOTES PATIENT REPORTED PAIN LEVEL CHEST PRESSURE AT 4.
--- NOTE | 2018-04-10 04:35 | NUR ---
BLOOD PRESSURE AT 120/75, PULSE 56
--- NOTE | 2018-04-10 06:03 | NUR ---
MS/RN NOTES PATIENT REPORTED PAIN LEVEL OF 5 , PRESSURE ON THE CHEST, IVP MORPHINE 2MG IVP GIVEN MONITORING FOR PAIN RELIEF.
--- NOTE | 2018-04-10 06:26 | NUR ---
320-2MS/RN NOTES PATIENT IN BED, ABLE TO VERBALIZE NEED AT ALL TIME, PRESSURE RELIEVE ON CHEST, PAIN MANAGEMENT, CALL LIGHTS WITHIN REACH, BED ALARM ON. WITH SERVICE DOG, ABLE TO DO SELF CARE, SLEPT FEW OURS PROVIDED FLUIDS, WILL ENDORSE
--- NOTE | 2018-04-10 07:30 | NUR ---
ms rn note received report, patient sitting up in bed with bed locked in lowest position. able to communicate needs. no pain noted at this time. no sob or distress noted, on room air at 98% toelrating well. right upper arm midline clean and intact. alert and oriented X4. will continue to monitor
[2018-04-10 08:00] VITALS: BP 105/59
--- NOTE | 2018-04-10 08:30 | NUR ---
ms rn note report given to roberto hi. patient in stable condition at this time. vitals within normal limits.
[2018-04-10] MEDS: ASPIRIN 81 MG TAB.CHEW PO SCH (08:31)
[2018-04-10] MEDS: GABAPENTIN 300 MG CAPSULE PO SCH ×2 (08:31→16:02)
[2018-04-10] MEDS: FINASTERIDE (5 MG) 5 MG TABLET PO SCH (08:31)
[2018-04-10] MEDS: CLOPIDOGREL BISULFATE 75 MG TABLET PO SCH (08:32)
[2018-04-10] MEDS: LISINOPRIL (20MG) 20 MG TABLET PO SCH (08:32)
[2018-04-10] MEDS: CLONIDINE HCL 0.1 MG TABLET PO SCH ×2 (08:33→22:08)
[2018-04-10] MEDS: PANTOPRAZOLE 40 MG TABLET.DR PO SCH (08:33)
[2018-04-10] MEDS: AMLODIPINE BESYLATE 10 MG TABLET PO SCH (08:34)
[2018-04-10] MEDS: ISOSORBIDE MONONITRATE (30MG) 30 MG TAB.SR.24H PO SCH (08:34)
--- NOTE | 2018-04-10 08:40 | NUR ---
ms rn notes All bp medications held due to bp 105/59. Will continue to monitor.
[2018-04-10 16:00] VITALS: BP 127/66
[2018-04-10] MEDS ORDERED: ACETAMINOPHEN ES 500 MG TABLET PO PRN (17:30)
--- NOTE | 2018-04-10 19:18 | NUR ---
ms rn closing notes All needs provided, attended, and anticipated. patient is in stable condition. Endorsed to next shift RN to continue care. Call light with in patient reach.
--- NOTE | 2018-04-10 19:20 | NUR ---
MS/RN OPENING NOTES PT RECEIVED RESTING IN BED WITH SERVICE DOG. A/OX4. ON ROOM AIR, BREATHING EVEN AND UNLABORED. NO S/S OF DISTRESS. APPEARS COMFORTABLE. LEIGHANN MIDLINE PATENT AND INTACT. BED IN LOW/LOCKED POSITION WITH CALL LIGHT IN REACH. SIDE RAILS UPX2. WILL CONTINUE TO MONITOR
[2018-04-10 20:00] VITALS: BP 131/72
--- NOTE | 2018-04-10 21:00 | NUR ---
PT C/O CHEST PRESSURE 9/10 RADIATING TO LEFT ARM. SITTING UP IN BED, PLAYING WITH HAND HELD RADIO/WALKY TALKY. APPEARS COMFORTABLE. REQUESTING PAIN MEDICATION, MORPHINE OR DILAUDID. PT MADE AWARE THAT PAIN MEDICATION ASIDE FROM TYLENOL HAS BEEN DISCONTINUED BY THE DOCTOR. "WANTS TO SEE ANOTHER DOCTOR". REQUESTING NITRO INSTEAD. ADMINISTERED ORDERED. BP 131/70, HR=65. WILL MONITOR FOR EFFECTIVENESS
[2018-04-10] MEDS: SIMVASTATIN 40 MG TABLET PO SCH (22:08)
[2018-04-10] MEDS: TAMSULOSIN 0.4 MG CAP.SR.24H PO SCH (22:08)
--- NOTE | 2018-04-10 23:47 | NUR ---
MS/RN NOTES PT AWAKE, CALM AND PLEASANT AT THIS TIME. NO C/O OF CP, SOB, N/V. APPEARS HAPPY AND COMFORTABLE, SHOWING ME HIS HAND HELD RADIOS. NO C/O AT THIS TIME. NO IMMEDIATE NEEDS. WILL MONITOR
--- NOTE | 2018-04-10 23:49 | NUR ---
MS/RN NOTES PT SCRATCHED HIMSELF AND STARTED HAVING SLIGHT BLEEDING FROM THE NOSE. PRESSURE APPLIED WITH A TISSUE. BLEEDING STOPPED. WILL MONITOR
[2018-04-11] MEDS: METOPROLOL SUCCINATE 50 MG TAB.SR.24H PO SCH (02:30)
--- NOTE | 2018-04-11 02:48 | NUR ---
MS/RN NOTES SCHEDULED TOPROL XL HELD. IL=355/70, HR=56 (FLUCTUATING TO LOW 50'S). PT ASYMPTOMATIC.
--- NOTE | 2018-04-11 06:42 | NUR ---
MS/RN CLOSING NOTES PT AWAKE, RESTING COMFORTABLY IN BED. ON ROOM AIR, BREATHING EVEN AND UNLABORED. DENIES SOB OR CHEST PAIN AT THIS TIME. PT SLEPT WELL DURING THE NIGHT. LEIGHANN MIDLINE PATENT AND INTACT. NO SIGNIFICANT CHANGES OVERNIGHT. ALL NEEDS MET. BED IN LOW/LOCKED POSITION WITH CALL LIGHT IN REACH. SIDE RAILS UPX2. WILL ENDORSE TO DAY SHIFT RN DANII.
--- NOTE | 2018-04-11 07:05 | NUR ---
ms rn initial notes Received patient in bed, asleep, head of bed elevated, no SOB or distress noted, on room air and tolerated well. Patient is alert and oriented x 4, verbally responsive and able to make needs known. LEIGHANN midline in placed and intact and patent. No facial grimace noted, call light with in patient reach, will continue to monitor accordingly.
[2018-04-11 08:00] VITALS: BP_SYST 125; BP_SYST 141; BP_DIAS 65; BP_DIAS 76
[2018-04-11] MEDS: PANTOPRAZOLE 40 MG TABLET.DR PO SCH (08:10)
[2018-04-11] MEDS: ASPIRIN 81 MG TAB.CHEW PO SCH (08:10)
[2018-04-11] MEDS: GABAPENTIN 300 MG CAPSULE PO SCH ×2 (08:10→17:21)
[2018-04-11] MEDS: FINASTERIDE (5 MG) 5 MG TABLET PO SCH (08:10)
[2018-04-11] MEDS: CLOPIDOGREL BISULFATE 75 MG TABLET PO SCH (08:10)
[2018-04-11] MEDS: AMLODIPINE BESYLATE 10 MG TABLET PO SCH (08:11)
[2018-04-11] MEDS: ISOSORBIDE MONONITRATE (30MG) 30 MG TAB.SR.24H PO SCH (08:11)
[2018-04-11] MEDS: LISINOPRIL (20MG) 20 MG TABLET PO SCH (08:11)
[2018-04-11] MEDS: CLONIDINE HCL 0.1 MG TABLET PO SCH ×2 (08:12→21:00)
[2018-04-11 16:09] VITALS: BP 119/65
--- NOTE | 2018-04-11 19:15 | NUR ---
MS RN OPENING NOTE Patient was seen sitting upright on the edge of the bed AAOx4, breathing on RA with no SOB, and no signs of acute distress. Midline located in the right upper arm, SL. Patient has service dog at the bedside. Bed is in the low/locked position, two side rails up, and call fowler within reach. Patient has no immediate needs or concerns at this time. Will continue to monitor.
--- NOTE | 2018-04-11 19:28 | NUR ---
ms rn closing notes All needs provided, attended, and anticipated. Patient in stable condition. Endorsed to next shift RN to continue care. Call light with in patient reach.
[2018-04-11 20:00] VITALS: BP 106/55
[2018-04-11] MEDS: SIMVASTATIN 40 MG TABLET PO SCH (21:53)
[2018-04-11] MEDS: TAMSULOSIN 0.4 MG CAP.SR.24H PO SCH (21:55)
[2018-04-12] MEDS: METOPROLOL SUCCINATE 50 MG TAB.SR.24H PO SCH (02:30)
--- NOTE | 2018-04-12 06:59 | NUR ---
MS RN CLOSING NOTE Patient was seen in bed AAOx4, breathing on RA with no SOB, and no signs of acute distress. Patient slept well overnight with no complaints and no events. Patient remains in stable condition ready for discharge. Bed is in the low/locked position, two side rails up, and call fowler within reach. Patient cared endorsed to day shift RN.
--- NOTE | 2018-04-12 07:05 | NUR ---
RN NOTES PT IS SITTING UP IN BED, AWAKE AND ALERT. PT ON RA,RESPIRATIONS ARE EVEN AND UNLABORED. LEIGHANN MIDLINE INTACT AND SL. NO SIGNS OF DISTRESS NOTED. SAFETY MEASURES ARE IN PLACE, CALL LIGHT IS IN REACH. WILL CONTINUE TO MONITOR.
[2018-04-12] MEDS: ASPIRIN 81 MG TAB.CHEW PO SCH (08:16)
[2018-04-12] MEDS: PANTOPRAZOLE 40 MG TABLET.DR PO SCH (08:16)
[2018-04-12 08:17] VITALS: BP 126/72
[2018-04-12] MEDS: FINASTERIDE (5 MG) 5 MG TABLET PO SCH (08:17)
[2018-04-12] MEDS: CLONIDINE HCL 0.1 MG TABLET PO SCH (08:17)
[2018-04-12] MEDS: CLOPIDOGREL BISULFATE 75 MG TABLET PO SCH (08:17)
[2018-04-12] MEDS: GABAPENTIN 300 MG CAPSULE PO SCH (08:17)
[2018-04-12] MEDS: AMLODIPINE BESYLATE 10 MG TABLET PO SCH (08:17)
[2018-04-12] MEDS: LISINOPRIL (20MG) 20 MG TABLET PO SCH (08:19)
[2018-04-12] MEDS: ISOSORBIDE MONONITRATE (30MG) 30 MG TAB.SR.24H PO SCH (08:20)
--- NOTE | 2018-04-12 10:15 | NUR ---
RN NOTES PT WAS DISCHARGED HOME IN STABLE CONDITION. BELONGINGS WERE RETURNED TO PT. IV AND ID BAND WERE REMOVED. DISCHARGE INSTRUCTIONS WERE GIVEN AND PT WAS TOLD TO F/U WITH PCP AND EP SPECIALIST WITHIN 1 WEEK OF DISCHARGE. PT STATED HE WAS GOING TO HIS EP SPECIALIST LATER TODAY. MEDICATIONS AND BELONGINGS WERE RETURNED TO PT. 2 DOLLARS WERE GIVEN TO PT IN ORDER TO TAKE THE BUS HOME.
== END 2018-04-12 10:00 | disposition home or self-care (01) | DRG 302 ==
LOC: ER 22:25 → TELE 23:09 → MED 04-06 10:52
PROVIDERS: ADMIT Nurse Practitioner Acute Care; ATTEND Nurse Practitioner Acute Care
PROC: 05H533Z Insertion of Infusion Device into Right Subclavian Vein, Percutaneous Approach (ICD-10-PCS; principal; 2018-04-05)
PROC: B546ZZA Ultrasonography of Right Subclavian Vein, Guidance (ICD-10-PCS; 2018-04-05)
DX: I25.10 Atherosclerotic heart disease of native coronary artery without angina pectoris (principal); N17.0 Acute kidney failure with tubular necrosis; I11.0 Hypertensive heart disease with heart failure; I50.9 Heart failure, unspecified; N40.0 Benign prostatic hyperplasia without lower urinary tract symptoms; E78.5 Hyperlipidemia, unspecified; F39 Unspecified mood [affective] disorder; E66.9 Obesity, unspecified; D72.829 Elevated white blood cell count, unspecified; Z90.49 Acquired absence of other specified parts of digestive tract; Z88.0 Allergy status to penicillin; Z88.2 Allergy status to sulfonamides; Z68.32 Body mass index [BMI] 32.0-32.9, adult; Z91.041 Radiographic dye allergy status; E11.9 Type 2 diabetes mellitus without complications; Z76.5 Malingerer [conscious simulation]; Z95.5 Presence of coronary angioplasty implant and graft; Z79.02 Long term (current) use of antithrombotics/antiplatelets
CPT/HCPCS: 36415; 36569; 71045-TC; 75574; 80048-TC; 80061-TC; 82728-TC; 82962-TC; 83540-TC; 83735-TC; 83880; 84100-TC; 84443-TC; 84484-TC; 85025-TC; 85730-TC; 87081-TC; A4606; A6402; A9502; J1200; J2270; J2785; J2930; J3490; J7030; Q0162; Q0163; Q9967; Z7610

== ENCOUNTER 2018-08-04 21:24 | Inpatient (IN) | payer MEDICARE, OTHER ==
[~2018-08-04] VITALS: Ht 167.6 cm; Wt 91.2 kg
[~2018-08-04 21:24] MED LIST changes: +CLON0.2T PO; +GABA-534 PO; -SIMV40TA5 PO
--- NOTE | 2018-08-04 22:10 | NUR ---
BBSELF FROM HOME C/C INTERMITTENT MIDSTERNAL CP X 3 DAYS NON RADIATING, SEEN AT [facility] FOR CP, WAS TOLD NEEDED ANGIOGRAM, TOOK NTG X3 & ASPIRIN 81MG X3 1 1/2HRS CHIEF PSYCHOLOGIST. PT IS AAOX4. SKIN WNL. -N/V/D. NO S/S OF ACUTE DISTRESS NOTED. RR EVEN AND UNLABORED. PT PLACED ON FISH SEINER AND POX. PT SAFETY AND COMFORT MEASURES IN PLACE. HARNESS BRUSHER BEDSIDE. WILL CONTINUE TO MONITOR PT.
[2018-08-04] MEDS ORDERED: MORPHINE SULFATE INJ 4 MG/ML DISP.SYRIN ONE ×2 (22:19→23:04)
[2018-08-04] MEDS ORDERED: ONDANSETRON HCL/PF 4 MG/2 ML VIAL ONE (22:19)
[2018-08-04] MEDS ORDERED: NITROGLYCERIN PACKET 1 GM PACKET ONE (22:19)
[2018-08-04] MEDS ORDERED: NITROGLYCERIN PACKET 1 GM PACKET TOP ONE (22:30)
[2018-08-04] MEDS ORDERED: MORPHINE SULFATE INJ 2 MG/ML DISP.SYRIN IV ONE (22:30)
[2018-08-04] MEDS ORDERED: ONDANSETRON HCL/PF 4 MG/2 ML VIAL IV ONE (22:30)
--- NOTE | 2018-08-04 22:38 | NUR ---
UNABLE TO ESTABLISH PERIPHERAL IV, ROOF TECHNICIAN DEGRASSEE MADE AWARE. ULTRASOUND BEDSIDE
[2018-08-04] MEDS ORDERED: ONDANSETRON 4 MG TAB.RAPDIS ONE (23:04)
[2018-08-04 23:10] LABS: BASOPHILS % (AUTO) 0.1 % (0.0-2.0); HEMATOCRIT 31 % (39-51); HEMOGLOBIN 9.9 g/dL (13.5-17.5); LYMPHOCYTES # (AUTO) 0.6 /CMM (0.8-4.8); LYMPHOCYTES % (AUTO) 5.1 % (20.0-44.0); MEAN CORPUSCULAR HGB CONC 32 g/dl (31.0-36.0); MEAN CORPUSCULAR VOLUME 74 fL (80-96); MONOCYTES # (AUTO) 1.2 /CMM (0.1-1.30); MONOCYTES % (AUTO) 10.9 % (2.0-12.0); NEUTROPHILS # (AUTO) 9.3 /CMM (1.8-8.9); NEUTROPHILS % (AUTO) 83.9 % (43.0-81.0); PLATELET COUNT (AUTO) 215 /CMM (150-450); RDW COEFFICIENT OF VARIATION 18.4 (11.5-15.0); RED BLOOD CELL COUNT(AUTO) 4.21 MIL/uL (4.5-6.0); WHITE BLOOD COUNT (AUTO) 11.1 K/uL (4.3-11.0)
[2018-08-04 23:27] LABS: CALCIUM, SERUM 9.2 mg/dL (8.5-10.1); CARBON DIOXIDE 23 mmol/L (21-32); CHLORIDE 104 mmol/L (98-107); CREATININE 1.1 mg/dL (0.6-1.3); GLUCOSE 115 mg/dL (74-106); POTASSIUM 4.2 mmol/L (3.5-5.1); SODIUM SERUM 139 mmol/L (136-145); UREA NITROGEN, BLOOD 25 mg/dL (7-18)
[2018-08-04] MEDS ORDERED: MORPHINE SULFATE INJ 2 MG/ML DISP.SYRIN IM ONE (23:30)
[2018-08-04] MEDS ORDERED: ONDANSETRON 4 MG TAB.RAPDIS SL ONE (23:30)
[2018-08-04 23:33] LABS: ALANINE AMINOTRANSFERASE 30 U/L (12-78); ALBUMIN 3.6 g/dL (3.4-5.0); ALKALINE PHOSPHATASE 111 U/L (46-116); ASPARTATE AMINOTRANSFERASE 18 U/L (15-37); BILIRUBIN,DIRECT 0.1 mg/dL (0.0-0.2); BILIRUBIN,TOTAL 0.3 mg/dL (0.2-1.0); TOTAL PROTEIN, SERUM 6.7 g/dL (6.4-8.2)
[2018-08-04 23:35] LABS: INR 1.02 (0.87-1.13); TROPONIN I < 0.017 ng/mL (0.00-0.056)
--- NOTE | 2018-08-05 00:22 | NUR ---
Blair de la rosa in [facility] - 08/05/18 at 0134 by ARELIS PT ASSIGNED TO JORDAN 108
--- NOTE | 2018-08-05 00:26 | NUR ---
CALLED RN SUP FOR TELE BED
--- NOTE | 2018-08-05 00:32 | NUR ---
CALLED [facility] FOR PANEL ADMISSION, WAITING FOR DR. WILLOUGHBY CALL BACK.
--- NOTE | 2018-08-05 00:55 | NUR ---
CALLED [facility] FOR PANEL ADMISSION FOR SECOND PAGE, WAITING FOR DR. WILLOUGHBY CALL BACK.
--- NOTE | 2018-08-05 01:03 | NUR ---
BERNY ROE SPEAKING TO DR. WILLOUGHBY REGARDING ADMISSION.
[2018-08-05 01:30] VITALS: BP 154/97
--- NOTE | 2018-08-05 01:34 | NUR ---
PT ASSIGNED TO [facility] BED 329
--- NOTE | 2018-08-05 01:46 | NUR ---
REPORT GIVEN TO REHABILITATION PHYSICIANDOMINIC STARKS FOR DANII
[2018-08-05 02:00] VITALS: BP 154/97
--- NOTE | 2018-08-05 02:00 | NUR ---
GAMBLING MONITOR OPENING/ADMITTING NOTES Patient arrived from the ED to our unit on a stretcher but was able to ambulate to his bed independently with steady gait. He is AAOx4, breathing comfortably on RA with no SOB, and currently shows no signs of acute distress. Physical exam, vital signs, and past medical history were completed with patient. 22g IV is located in the abdomen in the LLQ and is intact and patent. Redness and mild swelling was noted on patient's LLE; photo was taken. Patient currently reports 3/10 chest pain, which he states has improved since earlier (down from 8/10) and is currently tolerable. Morphine and nitro were given in the ED. Patient has been oriented to his room and use of the call fowler. Patient has his service dog with him at the bedside. Currently the patient has no needs/concerns. Will continue to monitor.
[2018-08-05] MEDS ORDERED: DOCU-141 PO (03:04)
[2018-08-05] MEDS ORDERED: AZIT250T PO (03:04)
[2018-08-05] MEDS ORDERED: ALBU8.5H8 INH (03:04)
[2018-08-05 04:00] VITALS: BP 153/85
[2018-08-05] MEDS ORDERED: NITROGLYCERIN 0.4 MG/TAB BOTTLE SL SCH (05:30)
[2018-08-05] MEDS ORDERED: ACETAMINOPHEN 325 MG TABLET PO PRN (05:30)
--- NOTE | 2018-08-05 07:30 | NUR ---
MS RN CLOSING NOTE Patient AAOx3 with no signs of acute distress. All patient needs attended to overnight. Patient care endorsed to day shift RN.
--- NOTE | 2018-08-05 07:44 | NUR ---
EDGING MACHINE SETTER OPENING NOTES PT WAS RECEIVED STANDING UP IN THE ROOM, A/O X4, NO S/S OF DISTRESS OR PAIN NOTED, BREATHING IS EVEN AND UNLABORED ON RA, SERVICE DOG IS PRESENT AT THE BEDSIDE, IV WAS NOTED TO BE IN THE LLQ OF THE ABDOMEN, PT IS ON TELE MONITOR SHOWING NSR IN THE 70S, PT IS AMBULATORY, CALL LIGHT WITHIN REACH, SAFETY PRECAUTIONS IN PLACE, WILL CONTINUE TO MONITOR ACCORDINGLY
[2018-08-05 08:00] VITALS: BP 139/86
[2018-08-05] MEDS: ASPIRIN 81 MG TAB.CHEW PO SCH (08:19)
[2018-08-05] MEDS: DOCUSATE SODIUM 100 MG CAPSULE PO SCH ×2 (08:19→16:15)
[2018-08-05] MEDS: FINASTERIDE (5 MG) 5 MG TABLET PO SCH (08:20)
[2018-08-05] MEDS: GABAPENTIN 300 MG CAPSULE PO SCH ×2 (08:20→16:15)
[2018-08-05] MEDS: PANTOPRAZOLE 40 MG TABLET.DR PO SCH (08:20)
[2018-08-05] MEDS: FUROSEMIDE 40 MG/4 ML VIAL IV SCH ×5 (08:20→21:16)
[2018-08-05] MEDS: ISOSORBIDE MONONITRATE (30MG) 30 MG TAB.SR.24H PO SCH (08:21)
[2018-08-05] MEDS: CLOPIDOGREL BISULFATE 75 MG TABLET PO SCH (08:22)
[2018-08-05] MEDS: LISINOPRIL (20MG) 20 MG TABLET PO SCH (08:23)
[2018-08-05] MEDS: MORPHINE SULFATE INJ 4 MG/ML DISP.SYRIN IV PRN ×2 (08:32→21:26)
[2018-08-05] MEDS ORDERED: DOCUSATE SODIUM 100 MG CAPSULE PO SCH (09:00)
[2018-08-05] MEDS ORDERED: CARVEDILOL 6.25 MG TABLET PO SCH (09:00)
[2018-08-05] MEDS ORDERED: CLONIDINE HCL 0.2 MG TABLET PO SCH (09:00)
[2018-08-05] MEDS: AMLODIPINE BESYLATE 10 MG TABLET PO SCH (09:44)
[2018-08-05] MEDS: CLONIDINE HCL 0.1 MG TABLET PO SCH ×2 (09:45→16:15)
--- NOTE | 2018-08-05 12:00 | NUR ---
PT REFUSED SECOND DOSE OF LASIX DUE TO HIM FEELING PAIN AT THE IV SITE WHEN THE IV MEDS/FLUIDS ARE PUSHED, HE STATED HE WOULD TAKE THE DOSE ONCE THEY INSERT A MIDLINE. WILL CONTINUE TO MONITOR ACCORDINGLY
[2018-08-05 15:16] LABS: BASOPHILS % (AUTO) 0.6 % (0.0-2.0); EOSINOPHILS % (AUTO) 0.8 % (0.0-6.0); HEMATOCRIT 29 % (39-51); HEMOGLOBIN 9.1 g/dL (13.5-17.5); LYMPHOCYTES # (AUTO) 0.4 /CMM (0.8-4.8); LYMPHOCYTES % (AUTO) 6.9 % (20.0-44.0); MEAN CORPUSCULAR HGB CONC 31 g/dl (31.0-36.0); MEAN CORPUSCULAR VOLUME 75 fL (80-96); MONOCYTES # (AUTO) 0.5 /CMM (0.1-1.30); MONOCYTES % (AUTO) 9.4 % (2.0-12.0); NEUTROPHILS # (AUTO) 4.8 /CMM (1.8-8.9); NEUTROPHILS % (AUTO) 82.3 % (43.0-81.0); PLATELET COUNT (AUTO) 187 /CMM (150-450); RDW COEFFICIENT OF VARIATION 18.7 (11.5-15.0); RED BLOOD CELL COUNT(AUTO) 3.92 MIL/uL (4.5-6.0); WHITE BLOOD COUNT (AUTO) 5.8 K/uL (4.3-11.0)
[2018-08-05 15:28] LABS: IRON, SERUM 27 ug/dl (50-175); TOTAL IRON BINDING CAPACITY 366 ug/dl (250-450)
[2018-08-05 15:30] LABS: CARBON DIOXIDE 28 mmol/L (21-32); CHLORIDE 100 mmol/L (98-107); CREATININE 1.6 mg/dL (0.6-1.3); GLUCOSE 143 mg/dL (74-106); POTASSIUM 3.4 mmol/L (3.5-5.1); SODIUM SERUM 133 mmol/L (136-145); UREA NITROGEN, BLOOD 32 mg/dL (7-18)
[2018-08-05 15:36] LABS: TROPONIN I < 0.017 ng/mL (0.00-0.056)
[2018-08-05 15:42] LABS: ALANINE AMINOTRANSFERASE 25 U/L (12-78); ALBUMIN 3.3 g/dL (3.4-5.0); ALKALINE PHOSPHATASE 93 U/L (46-116); ASPARTATE AMINOTRANSFERASE 19 U/L (15-37); B-TYPE NATRIURETIC PEPTIDE 212 PG/ML (0-125); BILIRUBIN,TOTAL 0.3 mg/dL (0.2-1.0); PHOSPHORUS 4.6 mg/dL (2.5-4.9); TOTAL PROTEIN, SERUM 5.9 g/dL (6.4-8.2)
[2018-08-05 15:44] LABS: CALCIUM, SERUM 1.2 mg/dL (8.5-10.1)
[2018-08-05 15:45] LABS: CHOLESTEROL 133 mg/dL (<200); FERRITIN 12 ng/mL (8-388); HDL CHOLESTEROL 42 mg/dL (40-60); LDL 77 mg/dL (0-99); THYROID STIMULATING HORMONE 1.052 uIU/mL (0.358-3.74); TRIGLYCERIDES 131 mg/dL (30-150)
--- NOTE | 2018-08-05 15:45 | NUR ---
WAS NOTIFIED OF STAT LAB VALUE FOR PT CALCIUM LEVEL OF 1.2, CARITO LUCERO WAS MESSAGED AT THIS TIME, AWAITING FURTHER ORDERS
--- NOTE | 2018-08-05 15:55 | NUR ---
STAT SERUM CALCIUM REDRAW WAS ORDERED BY PROVIDER CARITO LUCERO, LAB WAS NOTIFIED OF REDRAW. WILL MONITOR ACCORDINGLY
[2018-08-05 16:00] VITALS: BP_SYST 123; BP_SYST 95; BP_DIAS 50; BP_DIAS 56
--- NOTE | 2018-08-05 16:50 | NUR ---
SERUM CALCIUM REDRAW WAS DONE AND WAS NOTED TO BE 7.7, NO ORDERS GIVEN BY PROVIDER AT THIS TIME, WILL MONITOR ACCORDINGLY
--- NOTE | 2018-08-05 18:21 | NUR ---
LASIX WAS HELD DUE TO A LOW BLOOD PRESSURE OF 98/51, WILL ENDORSE TO ONCOMING TUBE REPAIRER NURSE
--- NOTE | 2018-08-05 18:38 | NUR ---
MS RN CLOSING NOTES PT IN BED AT LOWEST AND LOCKED POSITION WITH SIDE RAILS UP X2, A/O X4, NO S/S OF DISTRESS OR PAIN NOTED, BREATHING IS EVEN AND UNLABORED ON RA, PT IS CURRENTLY ASLEEP IN BED, SERVICE DOG IS PRESENT AT THE BEDSIDE, PT HAS A MIDLINE 18G IN THE LEFT AC, PT IS MEDSURG AND AMBULATORY, ALL NEEDS ATTENDED TO, CALL LIGHT WITHIN REACH, SAFETY PRECAUTIONS IN PLACE, WILL ENDORSE TO DAY SHIFT FOR CONTINUITY OF CARE
--- NOTE | 2018-08-05 19:50 | NUR ---
RN OPENING NOTES RECEIVED REPORT FROM DAYSHIFT DOMINIC LLAMAS. FOUND Pt ASLEEP IN BED. NO S/S OF ACUTE DISTRESS OR SOB NOTED. RESPIRATIONS EVEN AND UNLABORED. Pt IS A/OX4, VERBAL, ABLE TO MAKE NEEDS KNOWN; WITH SERVICE DOG AT BEDSIDE. IV ACCESS ON LAC #18G MIDLINE, SL. SAFETY MEASURES IN PLACE. BED LOW, LOCKED, HOB ELEVATED, SIDE RAILS UP, CALL LIGHT, AND BEDSIDE TABLE WITHIN REACH. WILL CONTINUE TO MONITOR Pt THROUGHOUT THE NIGHT FOR SAFETY.
[2018-08-05 20:00] VITALS: BP 106/44
--- NOTE | 2018-08-05 21:11 | NUR ---
RN MS NOTES RECEIVED REPORT FROM DOMINIC PATEL FOR CONTINUITY OF CARE. MADE DR WILLOUGHBY AWARE PATIENT DECREASED BLOOD PRESSURE WITH NEW ORDERS TO D/C CURRENT COREG 6.25 NEW ORDER FOR COREG 3.125MG PO Q 12 HR HOLD COREG FOR TONIGHT RESUME TOMORROW AND HOLD LASIX FOR TONIGHT.
--- NOTE | 2018-08-05 21:13 | NUR ---
RN MS OPENING NOTES RECEIVED PATIENT AWAKE ALERT AND ORIENTED X 4, RESPIRATIONS EVEN AND UNLABORED WITH EQUAL RISE AND FALL OF CHEST, AMBULATORY PREFERS ROOM DOOR CLOSED, ORIENTED TO STAFF AND CALL LIGHT AND KEPT WITHIN REACH, LOW BED AND LOCKED, SAFETY PRECAUTIONS IN PLACE, FLOOR DRY AND CLEAR OF CLUTTER. LEFT AC MIDLINE #18 G INTACT AND PATENT, NO REDNESS, NO INFILTRATION PRESENT, PROVIDED SNACKS AND FLUIDS REQUESTED, ALL NEEDS ATTENDED AT THIS TIME, PATIENT REMAINS COMFORTABLE. WILL CONTINUE TO MONITOR.
--- NOTE | 2018-08-05 21:15 | NUR ---
RN NOTES RECEIVED ENDORSEMENT FROM DOMINIC AUGUSTE. WILL CONTINUE WITH Pt's DANII.
--- NOTE | 2018-08-05 21:17 | NUR ---
RN NOTES GAVE REPORT TO DOMINIC AUGUSTE FOR Pt's DANII.
[2018-08-05] MEDS: ATORVASTATIN 40 MG TABLET PO SCH (21:24)
[2018-08-05] MEDS: TAMSULOSIN 0.4 MG CAP.SR.24H PO SCH (21:24)
[2018-08-05] MEDS: ONDANSETRON HCL/PF 4 MG/2 ML VIAL IVP PRN (21:26)
--- NOTE | 2018-08-05 21:26 | NUR ---
OPTIMIZATION SPECIALIST NOTES PATIENT COMPLAINT OF PAIN TO CHEST AREA AND STATES HE HAS BRONCHITIS. REQUESTING FOR MORPHINE PRN VITAL SIGNS TAKEN PRIOR B/P 107/54,76,18,O2 SAT 95% RA. PRN GIVEN ORDERED WILL CONTINUE TO MONITOR FOR EFFECTIVENESS.
[2018-08-05] MEDS ORDERED: Medication Not On Formulary EA (Rosuvastatin Calcium (Crestor) 20 MG) PO SCH (22:00)
[2018-08-06] MEDS: MORPHINE SULFATE INJ 4 MG/ML DISP.SYRIN IV PRN (05:55)
--- NOTE | 2018-08-06 05:55 | NUR ---
RN MS NOTES PATIENT COMPLAINT OF PAIN TO "CHEST AREA", WITH NO APPARENT DISTRESS , REQUESTING FOR MORPHINE AND ZOFRAN. VITAL SIGNS 141/71,80,97%RA, 18. MORPHINE AND ZOFRAN PRN GIVEN ORDERED VIA MIDLINE AND FLUSHED.
[2018-08-06] MEDS: ONDANSETRON HCL/PF 4 MG/2 ML VIAL IVP PRN (05:56)
--- NOTE | 2018-08-06 06:46 | NUR ---
RN MS CLOSING NOTES PATIENT SLEEPING BUT EASILY AROUSABLE ALERT AND ORIENTED X 4, RESPIRATIONS EVEN AND UNLABORED WITH EQUAL RISE AND FALL OF CHEST, AMBULATORY PREFERS ROOM DOOR CLOSED, ORIENTED TO STAFF AND CALL LIGHT AND KEPT WITHIN REACH, LOW BED AND LOCKED, SAFETY PRECAUTIONS IN PLACE, FLOOR DRY AND CLEAR OF CLUTTER. LEFT AC MIDLINE #18 G INTACT AND PATENT, NO REDNESS, NO INFILTRATION PRESENT, PROVIDED SNACKS AND FLUIDS REQUESTED, ALL NEEDS ATTENDED AT THIS TIME, PATIENT REMAINS COMFORTABLE. WILL CONTINUE TO MONITOR AND ENDORSE TO NEXT SHIFT
--- NOTE | 2018-08-06 06:54 | NUR ---
RN MS NOTES MIDLINE FLUSHED AND ATTEMPTED TO DRAW BLOOD FOR LAB, UNABLE TO RETRIEVE BLOOD SAMPLE. PATIENT DENIES ANY PAIN OR DISCOMFORT TO SITE. MIDLINE IS FLUSHABLE.
--- NOTE | 2018-08-06 07:49 | NUR ---
MS RN OPENING NOTES RECEIVED PT FROM NIGHTSHIFT NURSE INS TABLE CONDITION. PT IS A/0 X3. NO SOB OR ACUTE SIGNS OF DISTRESS NOTED. BREATHING IS EVEN AND UNLABORED. HE DENIES ANY CHEST PAIN AT THIS TIME STATING THAT THE PREVIOUS MORPHINE ADMINISTRATION HAS BEEN EFFECTIVE FOR HIS PAIN. MIDLINE TO LEFT UPPER ARM NOTED, HOWEVER UNABLE TO FLUSH AT THIS TIME. WILL MAKE MIDLINE NURSE AWARE FOR FURTHER ASSESSMENT. BED IN LOW LOCKED POSITION, SIDE RAILS UP X2, CALL LIGHT WITHIN REACH. PT'S SERVICE DOG AT BEDSIDE. WILL CONTINUE TO MONITOR
[2018-08-06 08:00] VITALS: BP 138/71
[2018-08-06] MEDS: ASPIRIN 81 MG TAB.CHEW PO SCH (08:29)
[2018-08-06] MEDS: CLONIDINE HCL 0.1 MG TABLET PO SCH ×2 (08:30→17:12)
[2018-08-06] MEDS: PANTOPRAZOLE 40 MG TABLET.DR PO SCH (08:30)
[2018-08-06] MEDS: CLOPIDOGREL BISULFATE 75 MG TABLET PO SCH (08:30)
[2018-08-06] MEDS: FINASTERIDE (5 MG) 5 MG TABLET PO SCH (08:31)
[2018-08-06] MEDS: AMLODIPINE BESYLATE 10 MG TABLET PO SCH (08:31)
[2018-08-06] MEDS: GABAPENTIN 300 MG CAPSULE PO SCH ×2 (08:31→17:11)
[2018-08-06] MEDS: DOCUSATE SODIUM 100 MG CAPSULE PO SCH ×2 (08:31→17:11)
[2018-08-06] MEDS: CARVEDILOL 3.125 MG TABLET PO SCH ×2 (08:32→17:12)
[2018-08-06] MEDS: ISOSORBIDE MONONITRATE (30MG) 30 MG TAB.SR.24H PO SCH (09:00)
[2018-08-06] MEDS: LISINOPRIL (20MG) 20 MG TABLET PO SCH (09:00)
[2018-08-06 09:15] LABS: BASOPHILS % (AUTO) 0.2 % (0.0-2.0); EOSINOPHILS % (AUTO) 1.2 % (0.0-6.0); HEMATOCRIT 34 % (39-51); HEMOGLOBIN 10.8 g/dL (13.5-17.5); LYMPHOCYTES # (AUTO) 0.4 /CMM (0.8-4.8); MEAN CORPUSCULAR HGB CONC 32 g/dl (31.0-36.0); MEAN CORPUSCULAR VOLUME 75 fL (80-96); MONOCYTES # (AUTO) 0.5 /CMM (0.1-1.30); MONOCYTES % (AUTO) 8.7 % (2.0-12.0); NEUTROPHILS # (AUTO) 4.7 /CMM (1.8-8.9); NEUTROPHILS % (AUTO) 82.9 % (43.0-81.0); PLATELET COUNT (AUTO) 180 /CMM (150-450); RDW COEFFICIENT OF VARIATION 18.6 (11.5-15.0); RED BLOOD CELL COUNT(AUTO) 4.52 MIL/uL (4.5-6.0); WHITE BLOOD COUNT (AUTO) 5.6 K/uL (4.3-11.0)
[2018-08-06 09:34] LABS: ALANINE AMINOTRANSFERASE 25 U/L (12-78); ALBUMIN 3.6 g/dL (3.4-5.0); ALKALINE PHOSPHATASE 106 U/L (46-116); ASPARTATE AMINOTRANSFERASE 20 U/L (15-37); BILIRUBIN,TOTAL 0.5 mg/dL (0.2-1.0); CALCIUM, SERUM 8.3 mg/dL (8.5-10.1); CARBON DIOXIDE 25 mmol/L (21-32); CHLORIDE 102 mmol/L (98-107); CREATININE 1.3 mg/dL (0.6-1.3); GLUCOSE 142 mg/dL (74-106); MAGNESIUM 1.9 mg/dL (1.8-2.4); PHOSPHORUS 3.5 mg/dL (2.5-4.9); POTASSIUM 3.8 mmol/L (3.5-5.1); SODIUM SERUM 137 mmol/L (136-145); TOTAL PROTEIN, SERUM 6.6 g/dL (6.4-8.2); UREA NITROGEN, BLOOD 27 mg/dL (7-18)
[2018-08-06 09:36] LABS: TROPONIN I < 0.017 ng/mL (0.00-0.056)
[2018-08-06] MEDS ORDERED: CARV3.122 PO (12:29)
[2018-08-06 16:00] VITALS: BP 128/70
--- NOTE | 2018-08-06 19:02 | NUR ---
MS RN CLOSING NOTES PT REMAINS STABLE. ALL NEEDS MET DURING SHIFT AND ORDERS CARRIED OUT ACCORDINGLY. ALL DUE MEDS GIVEN. PRN CARE RENDERED. HE ADOLFO CHEST PAIN AT THIS TIME AND THROUGHOUT SHIFT. VITALS STABLE. MIDLINE IS STILL UNABLE TO BE FLUSHED. CHARGE NURSE MADE AWARE, MIDLINE NURSE TO ASSESS. PT D/C [id number] HAS APPEALED. CHARGE NURSE AND IRON CARRIER AWARE. SAFETY MEASURES REMAIN IN PLACE. PT'S SERVICE DOG REMAINS AT BEDSIDE. WILL ENDORSE TO NIGHTSHIFT NURSE FOR DANII
--- NOTE | 2018-08-06 19:30 | NUR ---
RN OPENING NOTES PT IS ASLEEP IN BED, COMFORTABLY, DOG AT BEDSIDE. PT IS IN ROOM AIR, TOLERATING WELL, NO SIGNS OF DISTRESS, NO LABORED BREATHING. IV ACCESS LEFT AC MIDLINE IS INTACT, TRIED FLUSHING BUT IT WOULD NOT FLUSH, CHARGE NURSE IS AWARE. NO SIGNS OF PAIN AT THIS MOMENT. SAFETY MEASURES IN PLACED, CALL LIGHT WITHIN REACH. WILL CONTINUE TO MONITOR AND ASSESS PT.
[2018-08-06 20:00] VITALS: BP 117/67
--- NOTE | 2018-08-06 21:25 | NUR ---
MS/RN NOTES RECEIVED TRANSFER OF CARE FROM RN FOR PATIENT, ALERT, ORIENTED X3 ABLE TO VERBALIZE NEEDS, OBSERVE RESTING COMFORTABLY BUT WEAK AND REPORTED CHEST PAIN , INFORMED OF NEEDED NITRO SUBLINGUAL PATIENT AGREED, B/P CHECK AT 144/66 WITH OXYGENATION IN ROOM AIR OF 97%. PATIETN ALSO DISCUSSED CONCERN WITH MIDLINE UNABLE TO FLUSH WITH PAIN MEDICATION VIA IV ROUTE, PATIENT REQUEST FOR CHANGE OF ROUTE TO INTRA MUSCULAR IF UNABLE TO USE IV AT THIS TIME AND TO FOLLOW UP MIDLINE FOR WORK UP. WILL CONTINUE TO MONITOR PAIN RELIEF AFTER ONE SUBLINGUAL NIRO GIVEN.
--- NOTE | 2018-08-06 21:25 | NUR ---
RN NOTES/ TRANSFER OF CONTINUITY OF CARE GAVE REPORT TO DOMINIC HINOJOSA. PATIENT IS ASLEEP IN BED, EASILY AROUSED. NO SIGNS OF DISTRESS. PT IS STABLE AT THIS TIME.
[2018-08-06] MEDS: ATORVASTATIN 40 MG TABLET PO SCH (21:35)
[2018-08-06] MEDS: TAMSULOSIN 0.4 MG CAP.SR.24H PO SCH (21:35)
[2018-08-06] MEDS: NITROGLYCERIN 0.4 MG/TAB BOTTLE SL PRN (21:51)
--- NOTE | 2018-08-06 22:15 | NUR ---
MS/RN NOTES PATIENT OBSERVED RESTING IN BED, NO S/S OF GRIMACE OR GUARDING, ABLE TO AROUSE AND SAID WANTED TO SLEEP.
--- NOTE | 2018-08-07 04:00 | NUR ---
ms/rn notes CONTACTED AND LEFT MESSAGE FOR ORDERS AWAITING FOR RETURN CALL
--- NOTE | 2018-08-07 06:50 | NUR ---
329-1 MS/RN NOTES PATIENT ABLE TO SLEEP DURING THE NIGHT, ALERT, ORIENTED, PARTICIPATIVE TO CARE, CHEST PAIN RELIEF, PLAN OF CARE CONCERN REQUESTED TO APPEAL FOR HOSPITALIZATION, WITH DC ORDER BY HOSPITALIST. CALL LIGHTS WITHIN REAACH, BED LOCKED, KEPT COMFORTABLE, PROVIDED FLUIDS, MIDLINE UNABLE TO FLUSH, WILL INFORM TO FOLLOW UP.
--- NOTE | 2018-08-07 07:59 | NUR ---
MS RN OPENING NOTES PT RECEIVED IN BED AT LOWEST AND LOCKED POSITION WITH SIDE RAILS UP X2, A/O X2-3, NO S/S OF DISTRESS OR PAIN NOTED, BREATHING IS EVEN AND UNLABORED ON RA, SERVICE DOG IS PRESENT AT THE BEDSIDE, MIDLINE IV IS NOT CURRENTLY PATENT, CALL LIGHT WITHIN REACH, SAFETY PRECAUTIONS IN PLACE, WILL CONTINUE TO MONITOR ACCORDINGLY
[2018-08-07] MEDS: FINASTERIDE (5 MG) 5 MG TABLET PO SCH (08:09)
[2018-08-07] MEDS: DOCUSATE SODIUM 100 MG CAPSULE PO SCH ×2 (08:09→17:09)
[2018-08-07] MEDS: CLONIDINE HCL 0.1 MG TABLET PO SCH ×2 (08:10→17:10)
[2018-08-07] MEDS: ASPIRIN 81 MG TAB.CHEW PO SCH (08:10)
[2018-08-07] MEDS: CLOPIDOGREL BISULFATE 75 MG TABLET PO SCH (08:11)
[2018-08-07] MEDS: CARVEDILOL 3.125 MG TABLET PO SCH ×2 (08:11→17:11)
[2018-08-07] MEDS: PANTOPRAZOLE 40 MG TABLET.DR PO SCH (08:11)
[2018-08-07] MEDS: GABAPENTIN 300 MG CAPSULE PO SCH ×2 (08:12→17:10)
[2018-08-07] MEDS: AMLODIPINE BESYLATE 10 MG TABLET PO SCH (08:12)
[2018-08-07] MEDS: LISINOPRIL (20MG) 20 MG TABLET PO SCH (08:13)
[2018-08-07 08:37] VITALS: BP 147/78
[2018-08-07] MEDS: ISOSORBIDE MONONITRATE (30MG) 30 MG TAB.SR.24H PO SCH (09:00)
--- NOTE | 2018-08-07 09:30 | NUR ---
PT REFUSED SOME OF HIS BLOOD PRESSURE MEDICATION DUE TO HIM FEARING THAT IT MAY GET TO LOW. EDUCATION PROVIDED WILL MONITOR ACCORDINGLY
--- NOTE | 2018-08-07 15:05 | NUR ---
PT IS CONSISTENTLY CALLING OTHER UNITS AND MANAGEMET OF THE HOSPITAL DUE TO HIM NOT BEING PLEASED ABOUT HIS DIET AND CURRENT SITUATION, JUDSON LUCERO SERVICE ORDER CLERK IS AWARE AND DISCUSSED WITH PT ABOUT HOW DIET WILL NOT BE CHANGED SINCE HE IS MEDICALLY CLEARED TO BE D/C, CHARGE NURSE VIC MADE AWARE, WILL MONITOR ACCORDINGLY
[2018-08-07 16:07] VITALS: BP 127/70
--- NOTE | 2018-08-07 18:34 | NUR ---
MS RN CLOSING NOTES PT IN BED AT LOWEST AND LOCKED POSITION WITH SIDE RAILS UP X2, A/O X3, NO S/S OF DISTRESS OR PAIN NOTED, BREATHING IS EVEN AND UNLABORED ON RA, SERVICE DOG IS PRESENT AT THE BEDSIDE, MIDLINE IV IS NOT CURRENTLY PATENT, PT CONSTANTLY COMING TO THE EXECUTIVE VICE PRESIDENT BUSINESS DEVELOPMENT AND REQUESTING TO CONTACT DOCTORS AND OTHER SERVICES/ CHARGE NURSE AWARE AND OTHER STAFF AWARE, CALL LIGHT WITHIN REACH, SAFETY PRECAUTIONS IN PLACE, ALL NEEDS ATTENDED TO, WILL ENDORSE TO BUSINESS SUPPORT MANAGER FOR CONTINUITY OF CARE
--- NOTE | 2018-08-07 19:30 | NUR ---
RN NOTE; PT AMBULATING IN THE [address] WAY AND HIS ROOM. SEEMS NOT VERY COMFORTABLE. NO C/O PAIN BUT C/O NON- WORKING IV SITE ON HIS LAC. REPORTED THAT IT'S BLOCKED AND ASKING FOR A SPECIAL MEDICATION THAT HE HAS FOUND ONLINE TO UNCLOG THE LINE. OTHER BRAUN STABLE . WILL CONT TO MONITOR,
[2018-08-07 20:00] VITALS: BP 160/77
[2018-08-07] MEDS: ATORVASTATIN 40 MG TABLET PO SCH (21:33)
[2018-08-07] MEDS: TAMSULOSIN 0.4 MG CAP.SR.24H PO SCH (21:33)
[2018-08-07] MEDS: NITROGLYCERIN 0.4 MG/TAB BOTTLE SL PRN (22:58)
--- NOTE | 2018-08-07 22:58 | NUR ---
nitro 0.4mg tab sl given as ordered for c/o cp. will cont to monitor ,
--- NOTE | 2018-08-07 23:06 | NUR ---
pt sitting at the edge of the bed speaking to his phoone w/ no more c/o cp. will cont to monitor
[2018-08-08] MEDS: NITROGLYCERIN 0.4 MG/TAB BOTTLE SL PRN ×3 (04:25→14:02)
--- NOTE | 2018-08-08 04:25 | NUR ---
W/ C/O CHEST PAIN RADIATING TO LEFT ARM REQUESTING NITRO. GIVEN ORDERED,. WILL CONT TO MONITOR .
[2018-08-08] MEDS: MORPHINE SULFATE INJ 4 MG/ML DISP.SYRIN IV PRN ×2 (04:49→08:49)
--- NOTE | 2018-08-08 04:49 | NUR ---
PT IS REQUESTING TO D/C THE LAC MID LINE SINCE IT'S CLOGGED AND NOT FLUSHING. MIDLINE DRESSING WAS CHANGED AND KINKED AREA WAS FIXED , ABLE TO FLUSH LINE . ONCE PT KNEW THAT THE LINE IS PATENT REQUESTED FOR MORPHINE FOR C/O UNRELIEVED CHEST PAIN! REFUSED ANOTHER DOSE OF NITRO AND STATED THE PAIN WILL BE RELIEVED BY MORPHINE. MORPHINE GIVEN ORDERED PER PT'S REQUEST AND C/O PAIN. WILL CONT TO MONITOR ,
--- NOTE | 2018-08-08 06:30 | NUR ---
PT IS SITTING AT THE EDGE OF THE BED . BREATHING EVENLY. NO SOB. NO C/O PAIN OR DISCOMFORT. NEEDS ATTENDED. CALL LIGHT WITHIN REACH. WILL CONT TO MONITOR AND WILL ENDORSE TO AM, SHIFT FOR DANII .
--- NOTE | 2018-08-08 07:41 | NUR ---
MS RN OPENING NOTES RECEIVED PT SITTING AT EDGE OF BED WITH SERVICE DOG ON TOP OF BED. PT IS A/O X4, AFEBRILE. RESPIRATIONS ARE EVEN AND UNLABORED, NOT IN ANY ACUTE DISTRESS NOTED. DENIES ANY PAIN, SOB, N/V. MIDLINE ACCESS INTACT, NO INFILTRATION NOTED. DRESSING KEPT CLEAN AND DRY. SAFETY MEASURES ARE IN PLACE. INSTRUCTED PT TO USE CALL LIGHT WHEN ASSISTANCE IS NEEDED, CALL LIGHT IS LEFT WITHIN REACH. WILL CONTINUE TO MONITOR THROUGHOUT SHIFT FOR CONTINUITY OF CARE.
[2018-08-08 08:00] VITALS: BP_SYST 146; BP_SYST 159; BP_DIAS 101; BP_DIAS 94
[2018-08-08] MEDS: GABAPENTIN 300 MG CAPSULE PO SCH ×3 (08:44→17:00)
[2018-08-08] MEDS: PANTOPRAZOLE 40 MG TABLET.DR PO SCH (08:44)
[2018-08-08] MEDS: ASPIRIN 81 MG TAB.CHEW PO SCH (08:44)
[2018-08-08] MEDS: DOCUSATE SODIUM 100 MG CAPSULE PO SCH ×2 (08:44→17:35)
[2018-08-08] MEDS: FINASTERIDE (5 MG) 5 MG TABLET PO SCH (08:44)
[2018-08-08] MEDS: CARVEDILOL 3.125 MG TABLET PO SCH ×2 (08:47→17:36)
[2018-08-08] MEDS: AMLODIPINE BESYLATE 10 MG TABLET PO SCH (08:47)
[2018-08-08] MEDS: ISOSORBIDE MONONITRATE (30MG) 30 MG TAB.SR.24H PO SCH (08:47)
[2018-08-08] MEDS: LISINOPRIL (20MG) 20 MG TABLET PO SCH (08:47)
[2018-08-08] MEDS: CLOPIDOGREL BISULFATE 75 MG TABLET PO SCH (08:48)
[2018-08-08] MEDS: CLONIDINE HCL 0.1 MG TABLET PO SCH ×2 (08:48→17:36)
--- NOTE | 2018-08-08 08:54 | NUR ---
MS RN NOTES-- PT REFUSED GABAPENTIN. EXPLAINED THE RISKS AND BENEFITS X3, STILL NOTED WITH REFUSAL. WILL CONTINUE TO MONITOR.
--- NOTE | 2018-08-08 13:02 | NUR ---
MS RN NOTES-- PT STATED HE WANTS TO CHANGE HIS CARDIAC DIET TO REGULAR DIET. EXPLAINED TO THE PT THE IMPORTANCE OF BEING ON A CARDIAC DIET GIVEN HIS CARDIAC DISEASE HISTORY. PT STATED "I DONT GIVE A DAMN, CHANGE MY DIET." ZIA ELECTRIC WIRER AWARE AND STATED THAT PT NEEDS TO REMAINS ON CARDIAC DIET. PT THEN STATED RACIAL COMMENTS AND NURSE FIRMLY STATED THAT RACIAL COMMENTS ARE INAPPROPRIATE.
--- NOTE | 2018-08-08 13:55 | NUR ---
MS RN NOTES-- PT C/O CHEST PAIN 7/10, SHARP AND PRESSURE, RADIATING TO LEFT ARM. ADMINISTERED NITRO 0.4MG 1TAB. WILL MONITOR EFFECTIVENESS.
--- NOTE | 2018-08-08 14:01 | NUR ---
MS RN NOTES-- PT STATED CHEST PAIN HAS NOT RESOLVED. MEANWHILE, PT IS CURRENTLY OUT OF BED FIDDLING WITH BELONGINGS. EXPLAINED TO THE PT THAT HE SHOULD BE SITTING IN BED, STRESS FREE AND FOCUS ON BREATHING. PUT OXYGEN ON AT 2L/MIN FOR COMFORT MEASURES AND TO ENHANCE BREATHING.
--- NOTE | 2018-08-08 14:10 | NUR ---
MS RN NOTES-- PT STATED CHEST PAIN RESOLVED. WILL CONTINUE TO MONITOR.
--- NOTE | 2018-08-08 15:30 | NUR ---
MS RN NOTES-- PT C/O CHEST PAIN. NOTIFIED ZIA ARRIETA W/ ORDERS FOR STAT EKG AND STAT TROPONIN. RT AND LAB NOTIFIED.
[2018-08-08 16:00] VITALS: BP 130/72
--- NOTE | 2018-08-08 17:30 | NUR ---
MS RN NOTES-- PT SEEN AND EXAMINED BY ZIA ARRIETA W/ ORDERS TO D/C MIDLINE AND MORPHINE.
--- NOTE | 2018-08-08 19:02 | NUR ---
MS RN CLOSING NOTES ALL DUE MEDS GIVEN, NEEDS MET AND RENDERED. PT IS A/O X4, AFEBRILE. RESPIRATIONS ARE EVEN AND UNLABORED, NOT IN ANY ACUTE DISTRESS NOTED. PT MADE AWARE THAT MORPHINE HAS BEEN DISCONTINUED AND IF C/O CHEST PAIN, HE HAS NITRO. MIDLINE HAS BEEN DISCONTINUED, APPLIED PRESSURE AND TOLERATED WELL. PT DENIES ANY CHEST PAIN AT THIS TIME, NO C/O/ SOB, N/V. NO IV ACCESS. PER ZIA, PT DOES NOT NEED ANY IV ACCESS. SAFETY MEASURES ARE IN PLACE. DOG STILL IN ROOM. REMINDED PT TO USE CALL LIGHT WHEN ASSISTANCE IS NEEDED, CALL LIGHT IS LEFT WITHIN REACH.
--- NOTE | 2018-08-08 19:42 | NUR ---
RN OPENING NOTES PT IS AWAKE AND ALERT, SITTING IN BED. PT IS IN ROOM AIR, TOLERATING WELL, NO SIGNS OF DISTRESS, NO SIGNS OF LABORED BREATHING. PT IV ACCESS WAS D/C PER BERNY AGUIAR ORDER, PER TRANSFER AND PUMPHOUSE OPERATOR SHE DOES NOT NEED ANY IV ACCESS. PT DENIES ANY PAIN, NO COMPLAINTS OF CHEST PAIN. DOG IS STILL IN THE ROOM. SAFETY MEASURES IN PLACED, CALL LIGHT WITHIN REACH, WILL CONTINUE TO MONITOR AND ASSESS.
[2018-08-08 20:00] VITALS: BP 99/60
[2018-08-08] MEDS: AZITHROMYCIN 250 MG TABLET PO SCH (20:05)
[2018-08-08 20:14] VITALS: BP 99/60
[2018-08-08] MEDS: ATORVASTATIN 40 MG TABLET PO SCH (21:48)
[2018-08-08] MEDS: TAMSULOSIN 0.4 MG CAP.SR.24H PO SCH (21:48)
[2018-08-09] MEDS: NITROGLYCERIN 0.4 MG/TAB BOTTLE SL PRN ×2 (00:03→17:05)
--- NOTE | 2018-08-09 00:04 | NUR ---
RN NOTES PT REPORTS CHEST PAIN RADIATING ON THE LEFT ARM. GIVEN THE 1ST NITRO TAB. WILL CHECK BACK IN 5MINS
--- NOTE | 2018-08-09 00:06 | NUR ---
RN NOTES PT REPORTS RELIEF OF CHEST PAIN AFTER THE FIRST NITRO INGESTION
--- NOTE | 2018-08-09 06:37 | NUR ---
RN CLOSING NOTES PT IS ASLEEP IN BED. PT IN ROOM AIR, NO SIGNS OF LABORED BREATHING, NO SIGNS OF DISTRESS, NO SOB. NO IV ACCESS PER BERNY AGUIAR. NO CHEST PAIN COMPLAINTS AT THIS TIME. DOG IS AT BEDSIDE. SAFETY MEASURES IN PLACED, CALL LIGHT WITHIN REACH. WILL ENDORSE CONTINUITY OF CARE TO THE ONCOMING RN
--- NOTE | 2018-08-09 07:00 | NUR ---
MS RN OPENING NOTE Received pt in bed sleeping, breathing is even and unlabored on room air, no acute distress noted at this time. No IV access per BERNY Miguel. Safety measures in place, dog is at the bedside. Pt has a discharge order. Bed is locked and in lowest position, side rails up x2, call light within reach.
[2018-08-09 08:00] VITALS: BP 154/81
[2018-08-09] MEDS: GABAPENTIN 300 MG CAPSULE PO SCH ×3 (08:30→17:00)
[2018-08-09] MEDS: PANTOPRAZOLE 40 MG TABLET.DR PO SCH (08:30)
[2018-08-09] MEDS: LISINOPRIL (20MG) 20 MG TABLET PO SCH (08:31)
[2018-08-09] MEDS: DOCUSATE SODIUM 100 MG CAPSULE PO SCH ×2 (08:31→17:00)
[2018-08-09] MEDS: ASPIRIN 81 MG TAB.CHEW PO SCH (08:31)
[2018-08-09] MEDS: AMLODIPINE BESYLATE 10 MG TABLET PO SCH (08:31)
[2018-08-09] MEDS: CARVEDILOL 3.125 MG TABLET PO SCH ×2 (08:31→18:13)
[2018-08-09] MEDS: FINASTERIDE (5 MG) 5 MG TABLET PO SCH (08:31)
[2018-08-09] MEDS: CLOPIDOGREL BISULFATE 75 MG TABLET PO SCH (08:32)
[2018-08-09] MEDS: ISOSORBIDE MONONITRATE (30MG) 30 MG TAB.SR.24H PO SCH (08:32)
[2018-08-09] MEDS: CLONIDINE HCL 0.1 MG TABLET PO SCH ×2 (08:38→17:00)
[2018-08-09 16:00] VITALS: BP 110/62
--- NOTE | 2018-08-09 17:05 | NUR ---
MS RN PT REPORTING CHEST PAIN THE NURSE WALKED INTO PT ROOM, PT STATED HE HAS CHEST PAIN 5/10 THAT RADIATES DOWN LEFT ARM. PT STATED THAT HE WOKE UP "ABOUT 15 MINUTES AGO" WITH CHEST PAIN AND DID NOT ALERT NURSING STAFF. NITRO 0.4MG SL PRN FOR CHEST PAIN ADMINISTERED ORDERED. BP: 112/58, HR: 73, SP02: 96%.
--- NOTE | 2018-08-09 17:11 | NUR ---
MS RN CHEST PAIN PT REPORTS CHEST PAIN IS "GOING DOWN" AND IMPROVING, PT DOES NOT WANT ANOTHER NITROGLYCERIN 0.4MG SL ORDERED FOR CHEST PAIN. PT MENTAL STATUS IS AT BASELINE AND PT IS REQUESTING TO EAT DINNER. REINFORCED TO PT IMPORTANCE OF REPORTING ANY S/S OF CHEST PAIN OR SOB TO NURSING STAFF IMMEDIATELY, PT DID NOT VERBALIZE AGREEMENT/UNDERSTANDING AND PROCEEDED TO MAKE TELEPHONE CALL.
--- NOTE | 2018-08-09 17:51 | NUR ---
MS RN NON ADMINISTRATION NOTE CLONIDINE 0.2MG HELD BECAUSE PT JUST RECEIVED NITRO 0.4MG AT 1705 AND BP IS 112/59.
--- NOTE | 2018-08-09 18:01 | NUR ---
RT NOTE STAT EKG COMPLETE. RESULTS RELAYED TO CHARGE NURSE AND RN.
--- NOTE | 2018-08-09 18:05 | NUR ---
MS RN STAT EKG RESULTS STAT EKG SHOWS NORMAL SINUS RHYTHM WITH INCOMPLETE BUNDLE BRANCH BLOCK. NOTIFIED ZIA AGUIAR NP. PT REPORTS RESOLVE OF CHEST PAIN SYMPTOMS AND IS SITTING UP IN BED.
--- NOTE | 2018-08-09 18:15 | NUR ---
MS RN ORDERS RECEIVED RECEIVED ORDERS FROM ZIA AGUIAR NP FOR A STAT TROPONIN BLOOD DRAW. ORDERS ENTERED AND INITIATED.
--- NOTE | 2018-08-09 18:41 | NUR ---
MS RN CLOSING NOTE PT IN BED, ALERT AND ORIENTED X4. DENIES N/V, CHEST PAIN, SOB. BREATHING IS EVEN AND UNLABORED ON ROOM AIR. PT HAS NO IV ACCESS, MD AWARE. ALL NEEDS ATTENDED TO. DOG AT THE BEDSIDE. BED IS LOCKED AND IN LOWEST POSITION SIDE RAILS UPX2, CALL LIGHT WITHIN REACH. PT IS SCHEDULED FOR D/C TOMORROW BEFORE NOON PER CASE MANAGEMENT. WILL ENDORSE TO MEDICAL ASSISTANT OB GYN RN FOR CONTINUITY OF CARE.
--- NOTE | 2018-08-09 19:30 | NUR ---
RN NOTES RECEIVED PT.AWAKE ON BED, A/OX4, NO IV ACCESS -MD IS AWARE PT. IS REFUSING., AMBULATORY , LAB CAME AND REFUSED LAB DRAW FOR TROPONIN. . HE DENIES CHEST PAIN, NO SOB, CALL LIGHT WITHIN REACH, [id number], CONTINUE TO MONITOR
[2018-08-09 20:00] VITALS: BP 121/68
[2018-08-09] MEDS: AZITHROMYCIN 250 MG TABLET PO SCH (20:20)
[2018-08-09] MEDS: TAMSULOSIN 0.4 MG CAP.SR.24H PO SCH (21:35)
[2018-08-09] MEDS: ATORVASTATIN 40 MG TABLET PO SCH (21:35)
--- NOTE | 2018-08-10 06:20 | NUR ---
RN NOTES AWAKE ,DENIES PAIN, NO SOB, CALL LIGHT WITHIN REACH, [id number], PT. NEEDS ATTENDED
--- NOTE | 2018-08-10 07:58 | NUR ---
MS RN OPENING NOTES RECEIVED PT FROM NIGHTSHIFT NURSE IN STABLE CONDITION. PT IS A/0 X3. NO SOB OR ACUTE SIGNS OF DISTRESS NOTED. BREATHING IS EVEN AND UNLABORED. HE DENIES ANY CHEST PAIN AT THIS TIME. NO IV ACCESS PT HAS REFUSED. AWARE. BED IN LOW LOCKED POSITION, SIDE RAILS UP X2, CALL LIGHT WITHIN REACH. PT'S SERVICE DOG AT BEDSIDE. WILL CONTINUE TO MONITOR
[2018-08-10 08:00] VITALS: BP 137/76
[2018-08-10] MEDS: DOCUSATE SODIUM 100 MG CAPSULE PO SCH (08:49)
[2018-08-10] MEDS: CLOPIDOGREL BISULFATE 75 MG TABLET PO SCH (08:50)
[2018-08-10] MEDS: CLONIDINE HCL 0.1 MG TABLET PO SCH (08:50)
[2018-08-10] MEDS: FINASTERIDE (5 MG) 5 MG TABLET PO SCH (08:50)
[2018-08-10] MEDS: PANTOPRAZOLE 40 MG TABLET.DR PO SCH (08:50)
[2018-08-10 08:51] VITALS: BP 137/76
[2018-08-10] MEDS: CARVEDILOL 3.125 MG TABLET PO SCH (08:51)
[2018-08-10] MEDS: GABAPENTIN 300 MG CAPSULE PO SCH (08:51)
[2018-08-10] MEDS: AMLODIPINE BESYLATE 10 MG TABLET PO SCH (08:51)
[2018-08-10] MEDS: ASPIRIN 81 MG TAB.CHEW PO SCH (08:51)
[2018-08-10] MEDS: ISOSORBIDE MONONITRATE (30MG) 30 MG TAB.SR.24H PO SCH (09:00)
[2018-08-10] MEDS: LISINOPRIL (20MG) 20 MG TABLET PO SCH (09:00)
[2018-08-10] MEDS ORDERED: AZIT250T PO (11:18)
[2018-08-10] MEDS ORDERED: Nitroglycerin SL (11:18)
--- NOTE | 2018-08-10 12:48 | NUR ---
MS MIXER ATTENDANT NOTES PT WAS DISCHARGED FROM FACILITY IN STABLE CONDITION. ALL NEEDS WERE MET DURING SHIFT AND ORDERS CARRIED OUT ACCORDINGLY. ALL DUE MEDS GIVEN. ALL BELONGINGS VERIFIED PRIOR TO D/C. PT PROVIDED WITH D/C PAPERWORK AND WRITTEN PRESCRIPTIONS. HE VERBALIZED FULL UNDERSTANDING OF ALL D/C MATERIALS. HE WAS FURTHER PROVIDED WITH BUS FAIR. HE WAS SAFELY ESCORTED TO MAIN LOBBY BY THE CHEMICAL LABORATORY TESTER WITH ALL BELONGINGS
== END 2018-08-10 12:20 | disposition home or self-care (01) | DRG 302 ==
LOC: ER 21:25 → TELE 08-05 01:41 → MED 08-05 08:33
PROVIDERS: ADMIT Internal Medicine; ATTEND Internal Medicine
PROC: 05H633Z Insertion of Infusion Device into Left Subclavian Vein, Percutaneous Approach (ICD-10-PCS; principal; 2018-08-05)
DX: I25.10 Atherosclerotic heart disease of native coronary artery without angina pectoris (principal); N17.0 Acute kidney failure with tubular necrosis; E78.5 Hyperlipidemia, unspecified; D72.829 Elevated white blood cell count, unspecified; E86.0 Dehydration; N40.0 Benign prostatic hyperplasia without lower urinary tract symptoms; I70.90 Unspecified atherosclerosis; E66.9 Obesity, unspecified; Z68.32 Body mass index [BMI] 32.0-32.9, adult; Z91.19 Patient's noncompliance with other medical treatment and regimen; Z95.5 Presence of coronary angioplasty implant and graft; Z76.5 Malingerer [conscious simulation]; R60.9 Edema, unspecified; R07.89 Other chest pain; I50.9 Heart failure, unspecified; I25.2 Old myocardial infarction; Z85.6 Personal history of leukemia; Z88.0 Allergy status to penicillin; Z88.2 Allergy status to sulfonamides
CPT/HCPCS: 36415; 36569; 71045-TC; 80048-TC; 80053-TC; 80061-TC; 80076-TC; 82310-TC; 82728-TC; 83540-TC; 83735-TC; 83880; 84100-TC; 84443-TC; 84484-TC; 85025-TC; 85730-TC; 87081-TC; 93307-TC; A4606; G0378; J1940; J2270; J2405; Q0162; Z7610

== ENCOUNTER 2018-11-09 01:35 | Emergency (ER) | payer MEDICARE, OTHER ==
[~2018-11-09] VITALS: Ht 167.6 cm; Wt 96.2 kg
[~2018-11-09 01:35] MED LIST changes: +ALBU8.5H8 INH; -AMLO10TA6 PO; +AMLO10TA7 PO; +AZIT250T PO; +CARV3.122 PO; -CARV6.252 PO; +DOCU-141 PO; +Nitroglycerin SL; -ROSU20TA PO; +ROSU20TA2 PO
--- NOTE | 2018-11-09 02:10 | NUR ---
PT BBSELF C/C PRESSURE LIKE CP X 1.5 HRS W/ +DIZZINESS, +SOB, BILATERAL LOWER LEG EDEMA. -N/V/D. AFEBRILE. SKIN WNL. PT AOX4 IN BED 11 WITH DOG AT BEDSIDE. WILL CONTINUE MONITOR.
--- NOTE | 2018-11-09 02:20 | NUR ---
PHLEB AT BEDSIDE
--- NOTE | 2018-11-09 02:24 | NUR ---
TECH AT BEDSIDE FOR EKG
--- NOTE | 2018-11-09 03:20 | NUR ---
BLOOD DRAWN AND TAKEN BY LAB
[2018-11-09 03:31] LABS: BASOPHILS % (AUTO) 0.3 % (0.0-2.0); EOSINOPHILS % (AUTO) 4.4 % (0.0-6.0); HEMATOCRIT 27 % (39-51); HEMOGLOBIN 8.6 g/dL (13.5-17.5); LYMPHOCYTES # (AUTO) 0.5 /CMM (0.8-4.8); LYMPHOCYTES % (AUTO) 15.5 % (20.0-44.0); MEAN CORPUSCULAR HGB CONC 32 g/dl (31.0-36.0); MEAN CORPUSCULAR VOLUME 73 fL (80-96); MONOCYTES # (AUTO) 0.3 /CMM (0.1-1.30); MONOCYTES % (AUTO) 9.9 % (2.0-12.0); NEUTROPHILS # (AUTO) 2.4 /CMM (1.8-8.9); NEUTROPHILS % (AUTO) 69.9 % (43.0-81.0); PLATELET COUNT (AUTO) 161 /CMM (150-450); RED BLOOD CELL COUNT(AUTO) 3.74 MIL/uL (4.5-6.0); WHITE BLOOD COUNT (AUTO) 3.5 K/uL (4.3-11.0)
[2018-11-09 03:32] VITALS: BP 158/86
[2018-11-09 03:32] LABS: CARBON DIOXIDE 26 mmol/L (21-32); CHLORIDE 107 mmol/L (98-107); CREATININE 1.2 mg/dL (0.6-1.3); GLUCOSE 132 mg/dL (74-106); POTASSIUM 3.9 mmol/L (3.5-5.1); SODIUM SERUM 140 mmol/L (136-145); UREA NITROGEN, BLOOD 26 mg/dL (7-18)
[2018-11-09 03:57] LABS: EOSINOPHILS % (MANUAL) 5 % (0-4); LYMPHOCYTES % (MANUAL) 13 % (16-48); MONOCYTES % (MANUAL) 9 % (0-11.0); NEUTROPHILS % (MANUAL) 73 (42-76)
--- NOTE | 2018-11-09 04:05 | NUR ---
Patient discharged to home in stable condition. Written and verbal after care instructions given. Patient verbalizes understanding of instruction. PT AMBULATORY WITH STEADY GAIT.
== END 2018-11-09 04:32 | disposition home or self-care (01) ==
LOC: ER 01:37
DX: R07.89 Other chest pain (principal); I10 Essential (primary) hypertension; R94.31 Abnormal electrocardiogram [ECG] [EKG]; Z90.89 Acquired absence of other organs; Z95.818 Presence of other cardiac implants and grafts; Z88.2 Allergy status to sulfonamides; Z85.6 Personal history of leukemia; Z88.0 Allergy status to penicillin; Z88.8 Allergy status to other drugs, medicaments and biological substances; Z79.899 Other long term (current) drug therapy; Z79.82 Long term (current) use of aspirin
CPT/HCPCS: 36415; 71045; 80048; 84484; 85025; 85730; 93005; 99284; A4606

== ENCOUNTER 2019-03-19 15:51 | Emergency (ER) | payer MEDICARE, OTHER ==
[~2019-03-19] VITALS: Ht 162.6 cm; Wt 96.2 kg
[2019-03-19] MEDS ORDERED: ASPIRIN 325 MG TABLET ONE (16:17)
--- NOTE | 2019-03-19 16:18 | NUR ---
chest pain x 1 day. hx positive stress test but AMA'd from [facility] because he was unhappy with care. PAIN RADIATES TO LEFT SIDE OF NECK. PT IS AMBULATORY, AOX4, VSS, RR EVEN AND UNLABORED ON RA. PT IS HOMELESS, HAS SMALL DOG WITH HIM. TO ER BED 13 AND READY FOR EVAL. Addendum: 03/19/19 at 2343 by MANSI PT DENIES HOMELESSNESS. STAYING WITH A FRIEND UNTIL HE GOES BACK TO [facility]
--- NOTE | 2019-03-19 16:25 | NUR ---
PT IS A HARD STICK. STATES HE HAS HAD TO HAVE PICC LINE IN THE PAST. PER , CAN HOLD OFF ON SALINE LOCK.
[2019-03-19] MEDS ORDERED: ASPIRIN 325 MG TABLET PO ONE (16:30)
[2019-03-19] MEDS ORDERED: ENOXAPARIN SODIUM 100 MG/ML DISP.SYRIN SQ ONE (17:30)
--- NOTE | 2019-03-19 17:33 | NUR ---
CALLED NURSING SUP. FOR TELE BED
[2019-03-19] MEDS ORDERED: ENOXAPARIN SODIUM 60 MG/0.6 ML DISP.SYRIN SQ ONE (17:53)
[2019-03-19] MEDS ORDERED: ENOXAPARIN SODIUM 40 MG/0.4 ML DISP.SYRIN SQ ONE (17:53)
[2019-03-19] MEDS ORDERED: PANT40TA4 PO (18:10)
[2019-03-19] MEDS ORDERED: ONDA4TAB5 PO (18:10)
--- NOTE | 2019-03-19 18:49 | NUR ---
PT RESTING COMFORTABLY IN BED. NO COMPLAINTS AT THIS TIME. VSS
[2019-03-19 19:18] LABS: BASOPHILS % (AUTO) 0.6 % (0.0-2.0); EOSINOPHILS % (AUTO) 1.8 % (0.0-6.0); HEMATOCRIT 33 % (39-51); HEMOGLOBIN 10.5 g/dL (13.5-17.5); LYMPHOCYTES # (AUTO) 0.9 /CMM (0.8-4.8); LYMPHOCYTES % (AUTO) 13.4 % (20.0-44.0); MEAN CORPUSCULAR HGB CONC 32 g/dl (31.0-36.0); MEAN CORPUSCULAR VOLUME 73 fL (80-96); MONOCYTES # (AUTO) 0.6 /CMM (0.1-1.30); MONOCYTES % (AUTO) 8.7 % (2.0-12.0); NEUTROPHILS # (AUTO) 4.8 /CMM (1.8-8.9); NEUTROPHILS % (AUTO) 75.5 % (43.0-81.0); PLATELET COUNT (AUTO) 260 /CMM (150-450); RED BLOOD CELL COUNT(AUTO) 4.51 MIL/uL (4.5-6.0); WHITE BLOOD COUNT (AUTO) 6.4 K/uL (4.3-11.0)
[2019-03-19 19:37] LABS: CARBON DIOXIDE 28 mmol/L (21-32); CHLORIDE 108 mmol/L (98-107); CREATININE 1.1 mg/dL (0.6-1.3); GLUCOSE 87 mg/dL (74-106); POTASSIUM 4.2 mmol/L (3.5-5.1); SODIUM SERUM 145 mmol/L (136-145); UREA NITROGEN, BLOOD 24 mg/dL (7-18)
--- NOTE | 2019-03-19 20:39 | NUR ---
Patient is resting comfortably in bed with eyes closed. Easily aroused. VSS
--- NOTE | 2019-03-19 22:04 | NUR ---
PT ASKING FOR PAIN MED, STATES PAIN IS INCREASING. MD NOTIFIED.
--- NOTE | 2019-03-19 23:43 | NUR ---
Patient discharged to home in stable condition. Written and verbal after care instructions given. Patient verbalizes understanding of instruction.
[2019-03-19 23:44] VITALS: BP 127/87
== END 2019-03-19 23:45 | disposition home or self-care (01) ==
LOC: ER 15:55
DX: I25.118 Atherosclerotic heart disease of native coronary artery with other forms of angina pectoris (principal); I10 Essential (primary) hypertension; R00.2 Palpitations; Z95.5 Presence of coronary angioplasty implant and graft; Z85.6 Personal history of leukemia; Z90.89 Acquired absence of other organs; Z88.2 Allergy status to sulfonamides; Z88.6 Allergy status to analgesic agent; Z88.0 Allergy status to penicillin; Z79.82 Long term (current) use of aspirin; Z91.048 Other nonmedicinal substance allergy status
CPT/HCPCS: 36415; 71045; 80048; 84484 ×2; 85025; 93005 ×2; 96372; 99284; J1650 ×3

== ENCOUNTER 2019-06-24 17:27 | Emergency (ER) | payer MEDICARE, OTHER ==
[~2019-06-24] VITALS: Ht 167.6 cm; Wt 99.8 kg
[2019-06-24 17:27] VITALS: BP 161/135
[~2019-06-24 17:27] MED LIST changes: -AZIT250T PO; +ONDA4TAB5 PO; +PANT40TA4 PO
--- NOTE | 2019-06-24 18:45 | NUR ---
PATIENT IS REFUSING ALL CARE. DR. MATT AWARE. PT ELOPED, PT DID NOT WANT TO SIGN AMA
== END 2019-06-24 18:46 | disposition left against medical advice (07) ==
LOC: ER 17:33
DX: R07.89 Other chest pain (principal); F41.9 Anxiety disorder, unspecified; I10 Essential (primary) hypertension; I45.10 Unspecified right bundle-branch block; I44.4 Left anterior fascicular block; Z95.5 Presence of coronary angioplasty implant and graft; Z85.6 Personal history of leukemia; Z90.89 Acquired absence of other organs; Z88.2 Allergy status to sulfonamides; Z88.6 Allergy status to analgesic agent; Z88.0 Allergy status to penicillin; Z79.82 Long term (current) use of aspirin; Z91.048 Other nonmedicinal substance allergy status

== ENCOUNTER 2019-07-18 21:14 | Emergency (ER) | payer MEDICARE, OTHER ==
[~2019-07-18] VITALS: Ht 167.6 cm; Wt 90.7 kg
--- NOTE | 2019-07-18 21:36 | NUR ---
BIBSELF. TO ER BED 11. AAOX4. BREATHING EVEN AND UNLABORED. AMBULATORY. C/O L SIDED CHEST PAIN WHICH HAS BEEN GOING ON FOR THE PAST 3 DAYS. PT REPORTS THAT HE WAS JUST DISCHARGED FROM [facility] PRIOR TO COMING [facility] ER. WAS AT BEDSIDE FOR EVAL. ORDERS RECEIVED, NOTED AND CARRIED OUT. EKG AND LAB AT BEDSIDE.
[2019-07-18 21:56] LABS: BASOPHILS % (AUTO) 0.4 % (0.0-2.0); EOSINOPHILS % (AUTO) 0.1 % (0.0-6.0); HEMATOCRIT 33 % (39-51); HEMOGLOBIN 10.3 g/dL (13.5-17.5); LYMPHOCYTES # (AUTO) 0.5 /CMM (0.8-4.8); LYMPHOCYTES % (AUTO) 19.4 % (20.0-44.0); MEAN CORPUSCULAR HGB CONC 32 g/dl (31.0-36.0); MEAN CORPUSCULAR VOLUME 77 fL (80-96); MONOCYTES # (AUTO) 0.4 /CMM (0.1-1.30); MONOCYTES % (AUTO) 14.4 % (2.0-12.0); NEUTROPHILS # (AUTO) 1.6 /CMM (1.8-8.9); NEUTROPHILS % (AUTO) 65.7 % (43.0-81.0); PLATELET COUNT (AUTO) 98 /CMM (150-450); RED BLOOD CELL COUNT(AUTO) 4.25 MIL/uL (4.5-6.0); WHITE BLOOD COUNT (AUTO) 2.4 K/uL (4.3-11.0)
[2019-07-18 22:08] LABS: CALCIUM, SERUM 8.5 mg/dL (8.5-10.1); CARBON DIOXIDE 26 mmol/L (21-32); CHLORIDE 104 mmol/L (98-107); CREATININE 1.4 mg/dL (0.6-1.3); GLUCOSE 102 mg/dL (74-106); POTASSIUM 4.2 mmol/L (3.5-5.1); SODIUM SERUM 138 mmol/L (136-145); UREA NITROGEN, BLOOD 22 mg/dL (7-18)
--- NOTE | 2019-07-18 23:21 | NUR ---
Patient discharged to home in stable condition. Written and verbal after care instructions given. Patient verbalizes understanding of instruction. Pt ambulatory with a steady gait
[2019-07-18 23:22] LABS: LYMPHOCYTES % (MANUAL) 27 % (16-48); MONOCYTES % (MANUAL) 11 % (0-11.0); NEUTROPHILS % (MANUAL) 62 (42-76)
[2019-07-18 23:45] VITALS: BP 138/65
== END 2019-07-18 23:45 | disposition home or self-care (01) ==
LOC: ER 21:20
DX: R07.89 Other chest pain (principal); G89.29 Other chronic pain; I10 Essential (primary) hypertension; I71.9 Aortic aneurysm of unspecified site, without rupture; Z95.5 Presence of coronary angioplasty implant and graft; Z90.89 Acquired absence of other organs; Z88.2 Allergy status to sulfonamides; Z88.6 Allergy status to analgesic agent; Z85.6 Personal history of leukemia; Z88.0 Allergy status to penicillin; Z91.048 Other nonmedicinal substance allergy status; Z79.82 Long term (current) use of aspirin
CPT/HCPCS: 36415; 71045-TC; 80048-TC; 84484-TC; 85025-TC

== ENCOUNTER 2019-07-22 17:10 | Emergency (ER) | payer MEDICARE, OTHER ==
[~2019-07-22] VITALS: Ht 170.2 cm; Wt 90.7 kg
--- NOTE | 2019-07-22 17:20 | NUR ---
"Dx with pneumonia on abx but NOT getting better"-PATIENT CAME TO [facility] AND WAS GIVEN PRESCRIPTION ANTIBIOTICS. TO ER BED 12, HOOKED TO MONITOR, AWAITING MD ADRIAN.
--- NOTE | 2019-07-22 17:40 | NUR ---
DR MORFIN AT BEDSIDE
[2019-07-22 18:39] LABS: BASOPHILS % (AUTO) 0.2 % (0.0-2.0); EOSINOPHILS % (AUTO) 1.3 % (0.0-6.0); HEMATOCRIT 35 % (39-51); HEMOGLOBIN 11.3 g/dL (13.5-17.5); LYMPHOCYTES # (AUTO) 0.4 /CMM (0.8-4.8); LYMPHOCYTES % (AUTO) 16.2 % (20.0-44.0); MEAN CORPUSCULAR HGB CONC 33 g/dl (31.0-36.0); MEAN CORPUSCULAR VOLUME 76 fL (80-96); MONOCYTES # (AUTO) 0.3 /CMM (0.1-1.30); MONOCYTES % (AUTO) 12.1 % (2.0-12.0); NEUTROPHILS # (AUTO) 1.9 /CMM (1.8-8.9); NEUTROPHILS % (AUTO) 70.2 % (43.0-81.0); PLATELET COUNT (AUTO) 180 /CMM (150-450); RED BLOOD CELL COUNT(AUTO) 4.58 MIL/uL (4.5-6.0); WHITE BLOOD COUNT (AUTO) 2.8 K/uL (4.3-11.0)
[2019-07-22 19:09] LABS: CREATININE 1.1 mg/dL (0.6-1.3); POTASSIUM 4.2 mmol/L (3.5-5.1)
--- NOTE | 2019-07-22 19:48 | NUR ---
Patient discharged to home in stable condition. Written and verbal after care instructions given. Patient verbalizes understanding of instruction.
[2019-07-22 20:12] VITALS: BP 158/101
== END 2019-07-22 19:50 | disposition home or self-care (01) ==
LOC: ER 17:15
DX: J18.9 Pneumonia, unspecified organism (principal); I11.0 Hypertensive heart disease with heart failure; I50.9 Heart failure, unspecified; I25.10 Atherosclerotic heart disease of native coronary artery without angina pectoris; E86.0 Dehydration; Z95.5 Presence of coronary angioplasty implant and graft; Z85.6 Personal history of leukemia; Z90.89 Acquired absence of other organs; Z88.2 Allergy status to sulfonamides; Z88.6 Allergy status to analgesic agent; Z88.1 Allergy status to other antibiotic agents; Z91.048 Other nonmedicinal substance allergy status; Z79.82 Long term (current) use of aspirin
CPT/HCPCS: 36415; 71045-TC; 80048-TC; 83880; 85025-TC

== ENCOUNTER 2019-10-11 16:27 | Emergency (ER) | payer MEDICARE, OTHER ==
[~2019-10-11] VITALS: Ht 167.6 cm; Wt 97.5 kg
[~2019-10-11 16:27] MED LIST changes: +LISI-604 PO; -LISI20TA61 PO
--- NOTE | 2019-10-11 17:00 | NUR ---
pressure like chest pain, AMA'd at [facility] 2 day ago was supposed to get a stress test. PT AAOX3, VSS. DENIES SOB, DIZZINESS, N/V, WEAKNESS @ THIS TIME. PT SEEN & EVAL'D BY DR. PITT. PLACED ON DROP WIRE STRINGER. NSR. WILL CONT TO MONITOR.
[2019-10-11 18:42] LABS: BASOPHILS % (AUTO) 0.8 % (0.0-2.0); EOSINOPHILS % (AUTO) 2.2 % (0.0-6.0); HEMATOCRIT 32 % (39-51); HEMOGLOBIN 10.3 g/dL (13.5-17.5); LYMPHOCYTES # (AUTO) 0.6 /CMM (0.8-4.8); LYMPHOCYTES % (AUTO) 12.2 % (20.0-44.0); MEAN CORPUSCULAR HGB CONC 32 g/dl (31.0-36.0); MEAN CORPUSCULAR VOLUME 77 fL (80-96); MONOCYTES # (AUTO) 0.5 /CMM (0.1-1.30); MONOCYTES % (AUTO) 10.3 % (2.0-12.0); NEUTROPHILS % (AUTO) 74.5 % (43.0-81.0); PLATELET COUNT (AUTO) 151 /CMM (150-450); RED BLOOD CELL COUNT(AUTO) 4.16 MIL/uL (4.5-6.0); WHITE BLOOD COUNT (AUTO) 5.3 K/uL (4.3-11.0)
[2019-10-11 19:04] LABS: CALCIUM, SERUM 8.9 mg/dL (8.5-10.1); CARBON DIOXIDE 26 mmol/L (21-32); CHLORIDE 105 mmol/L (98-107); CREATININE 1.1 mg/dL (0.6-1.3); GLUCOSE 104 mg/dL (74-106); SODIUM SERUM 140 mmol/L (136-145); UREA NITROGEN, BLOOD 21 mg/dL (7-18)
--- NOTE | 2019-10-11 19:18 | NUR ---
PT ASLEEP, EASILY AWAKEN BY VERBAL STIMLULI. VSS. RR EVEN & UNLABORED. DENIES ANY ACUTE DISTRESS @ THIS TIME. WILL CONT TO MONITOR
[2019-10-11 22:08] VITALS: BP 147/86
--- NOTE | 2019-10-11 22:08 | NUR ---
Patient discharged to home in stable condition. Written and verbal after care instructions given. Patient verbalizes understanding of instruction.
--- NOTE | 2019-10-11 22:09 | NUR ---
IV removed. Catheter intact and site benign. Pressure and 4x4 applied to site. No bleeding noted.
== END 2019-10-11 22:09 | disposition home or self-care (01) ==
LOC: ER 16:28
DX: G89.29 Other chronic pain (principal); R07.89 Other chest pain; I10 Essential (primary) hypertension; I25.10 Atherosclerotic heart disease of native coronary artery without angina pectoris; Z90.89 Acquired absence of other organs; Z98.890 Other specified postprocedural states; Z95.818 Presence of other cardiac implants and grafts; Z85.6 Personal history of leukemia; Z88.2 Allergy status to sulfonamides; Z88.8 Allergy status to other drugs, medicaments and biological substances; Z88.0 Allergy status to penicillin; Z79.899 Other long term (current) drug therapy; Z79.82 Long term (current) use of aspirin
CPT/HCPCS: 36415; 71045-TC; 80048-TC; 84484-TC; 85025-TC

== ENCOUNTER 2019-10-16 13:47 | Emergency (ER) | payer MEDICARE ==
[~2019-10-16] VITALS: Ht 167.6 cm; Wt 98.0 kg
--- NOTE | 2019-10-16 14:00 | NUR ---
PT AAOX4. AMBULATORY. C/O L SIDED CP 05/02 RADIATING TO L ARM. PLACED ON MONITOR AND PULSE OX. RR EVEN AND UNLABORED. AWAITING MD FOR EVAL. PT STATES HE FELT DIZZY -SYNCOPE, -SOB. VSS. MD AT BEDSIDE.
--- NOTE | 2019-10-16 14:32 | NUR ---
EGG SORTER AT BEDSIDE
[2019-10-16 14:47] LABS: BASOPHILS % (AUTO) 0.5 % (0.0-2.0); EOSINOPHILS % (AUTO) 1.7 % (0.0-6.0); HEMATOCRIT 36 % (39-51); HEMOGLOBIN 11.6 g/dL (13.5-17.5); LYMPHOCYTES # (AUTO) 0.9 /CMM (0.8-4.8); MEAN CORPUSCULAR HGB CONC 32 g/dl (31.0-36.0); MEAN CORPUSCULAR VOLUME 78 fL (80-96); MONOCYTES # (AUTO) 0.6 /CMM (0.1-1.30); MONOCYTES % (AUTO) 9.5 % (2.0-12.0); NEUTROPHILS # (AUTO) 4.5 /CMM (1.8-8.9); NEUTROPHILS % (AUTO) 74.3 % (43.0-81.0); PLATELET COUNT (AUTO) 182 /CMM (150-450); RED BLOOD CELL COUNT(AUTO) 4.63 MIL/uL (4.5-6.0); WHITE BLOOD COUNT (AUTO) 6.1 K/uL (4.3-11.0)
[2019-10-16 14:58] LABS: CALCIUM, SERUM 9.1 mg/dL (8.5-10.1); CARBON DIOXIDE 27 mmol/L (21-32); CHLORIDE 106 mmol/L (98-107); CREATININE 1.2 mg/dL (0.6-1.3); GLUCOSE 127 mg/dL (74-106); POTASSIUM 3.7 mmol/L (3.5-5.1); SODIUM SERUM 141 mmol/L (136-145); UREA NITROGEN, BLOOD 22 mg/dL (7-18)
--- NOTE | 2019-10-16 15:30 | NUR ---
Patient is resting comfortably in bed. Easily aroused. VSS. Using his laptop.
--- NOTE | 2019-10-16 16:45 | NUR ---
PT RESTING COMFORTABLY. USING HIS LAPTOP. DOG AT BEDSIDE.
--- NOTE | 2019-10-16 17:44 | NUR ---
RESTAURANT MANAGER AT BEDSIDE FOR REPREAT TROPONIN
--- NOTE | 2019-10-16 18:20 | NUR ---
Patient discharged to home in stable condition. Written and verbal after care instructions given. Patient verbalizes understanding of instruction. PT ambulatory with a steady gait.
[2019-10-16 18:21] VITALS: BP 136/98
== END 2019-10-16 18:25 | disposition home or self-care (01) ==
LOC: ER 13:47
DX: R07.89 Other chest pain (principal); I10 Essential (primary) hypertension; Z90.89 Acquired absence of other organs; Z98.890 Other specified postprocedural states; Z85.6 Personal history of leukemia; Z88.2 Allergy status to sulfonamides; Z88.8 Allergy status to other drugs, medicaments and biological substances; Z88.0 Allergy status to penicillin; Z79.899 Other long term (current) drug therapy; Z79.82 Long term (current) use of aspirin
CPT/HCPCS: 36415; 71045-TC; 80048-TC; 84484-TC; 85025-TC

== ENCOUNTER 2019-11-03 23:49 | Emergency (ER) | payer MEDICARE ==
[~2019-11-03] VITALS: Ht 170.2 cm; Wt 89.8 kg
--- NOTE | 2019-11-04 00:39 | NUR ---
BIBS WITH DOG. TO ER BED 11. AAOX4. NO RESP DISTRESS NOTED. AMBULATORY. C/O CHEST PAIN . PER PT CHEST PAIN IS ON THE LEFT CHEST RADIATING TO LEFT ARM WITH FEELING OF PRESSURE 7/10 X 1WEEK WORST TODAY. PER PT, HE WAS AT THE [facility] YESTERDAY AND TRANSFERRED TO [facility]. PT PLACED ON MONITOR. MD WAS AT BEDSIDE FOR EVAL. ORDERS RECEIVED, NOTED AND CARRIED OUT. LICENSED PROSTHETIST AT BEDSIDE FOR BLOOD DRAW
--- NOTE | 2019-11-04 03:28 | NUR ---
Patient discharged to home in stable condition. Written and verbal after care instructions given. Patient verbalizes understanding of instruction. Pt ambulatory with a steady gait
[2019-11-04 03:40] VITALS: BP 152/82
== END 2019-11-04 03:41 | disposition home or self-care (01) ==
LOC: ER 23:51
DX: R07.89 Other chest pain (principal); I10 Essential (primary) hypertension; Z85.6 Personal history of leukemia; Z90.89 Acquired absence of other organs; Z88.2 Allergy status to sulfonamides; Z91.048 Other nonmedicinal substance allergy status; Z88.0 Allergy status to penicillin; Z79.899 Other long term (current) drug therapy
CPT/HCPCS: 36415; 84484-TC

== ENCOUNTER 2019-11-09 20:26 | Emergency (ER) | payer MEDICARE ==
[~2019-11-09] VITALS: Ht 170.2 cm; Wt 89.8 kg
[2019-11-09 20:26] VITALS: BP 152/86
== END 2019-11-09 20:53 | disposition home or self-care (01) ==
LOC: ER 20:28
DX: G89.29 Other chronic pain (principal); R07.89 Other chest pain; I10 Essential (primary) hypertension; Z90.89 Acquired absence of other organs; Z98.890 Other specified postprocedural states; Z88.2 Allergy status to sulfonamides; Z91.048 Other nonmedicinal substance allergy status; Z88.0 Allergy status to penicillin; Z85.6 Personal history of leukemia; Z79.899 Other long term (current) drug therapy; Z79.82 Long term (current) use of aspirin; Z95.818 Presence of other cardiac implants and grafts

== ENCOUNTER 2020-03-14 14:45 | Emergency (ER) | payer MEDICARE ==
[~2020-03-14] VITALS: Ht 167.6 cm; Wt 97.1 kg
[~2020-03-14 14:45] MED LIST changes: -PANT40TA4 PO; +PANT40TA49 PO
--- NOTE | 2020-03-14 15:16 | NUR ---
C/O ON AND OFF CHEST PAIN R/T LUE X 2 WEEKS. PT AAOX4, VSS. RR EVEN & UNLABORED. DENIES SOB, DIZZINESS, N/V/D, FEVER OR WEAKNESS @ THIS TIME. DR. MCDERMOTT @ BS FOR EVAL. PLACED ON PUBLIC SAFETY POLICE, NSR. WILL CONT TO MONITOR.
[2020-03-14 15:38] LABS: BASOPHILS % (AUTO) 0.4 % (0.0-2.0); EOSINOPHILS % (AUTO) 0.9 % (0.0-6.0); HEMATOCRIT 32 % (39-51); LYMPHOCYTES # (AUTO) 0.6 /CMM (0.8-4.8); LYMPHOCYTES % (AUTO) 13.2 % (20.0-44.0); MEAN CORPUSCULAR HGB CONC 32 g/dl (31.0-36.0); MEAN CORPUSCULAR VOLUME 72 fL (80-96); MONOCYTES # (AUTO) 0.5 /CMM (0.1-1.30); MONOCYTES % (AUTO) 10.1 % (2.0-12.0); NEUTROPHILS # (AUTO) 3.6 /CMM (1.8-8.9); NEUTROPHILS % (AUTO) 75.4 % (43.0-81.0); PLATELET COUNT (AUTO) 207 /CMM (150-450); RED BLOOD CELL COUNT(AUTO) 4.41 MIL/uL (4.5-6.0); WHITE BLOOD COUNT (AUTO) 4.8 K/uL (4.3-11.0)
[2020-03-14 15:48] LABS: CALCIUM, SERUM 8.7 mg/dL (8.5-10.1); CARBON DIOXIDE 28 mmol/L (21-32); CHLORIDE 104 mmol/L (98-107); CREATININE 1.2 mg/dL (0.6-1.3); GLUCOSE 116 mg/dL (74-106); POTASSIUM 3.4 mmol/L (3.5-5.1); SODIUM SERUM 139 mmol/L (136-145); UREA NITROGEN, BLOOD 22 mg/dL (7-18)
[2020-03-14 16:01] LABS: ALANINE AMINOTRANSFERASE 35 U/L (12-78); ALBUMIN 3.8 g/dL (3.4-5.0); ALKALINE PHOSPHATASE 136 U/L (46-116); ASPARTATE AMINOTRANSFERASE 19 U/L (15-37); B-TYPE NATRIURETIC PEPTIDE 128 PG/ML (0-125); BILIRUBIN,DIRECT 0.1 mg/dL (0.0-0.2); BILIRUBIN,TOTAL 0.4 mg/dL (0.2-1.0); TOTAL PROTEIN, SERUM 6.9 g/dL (6.4-8.2)
[2020-03-14 16:34] LABS: EOSINOPHILS % (MANUAL) 1 % (0-4); LYMPHOCYTES % (MANUAL) 12 % (16-48); MONOCYTES % (MANUAL) 10 % (0-11.0); NEUTROPHILS % (MANUAL) 77 (42-76)
--- NOTE | 2020-03-14 16:37 | NUR ---
Patient discharged to home in stable condition. Written and verbal after care instructions given. Patient verbalizes understanding of instruction. MIDLINE ON LEIGHANN removed. Catheter intact and site benign. Pressure and 4x4 applied to site. No bleeding noted.
[2020-03-14 16:38] VITALS: BP 134/76
== END 2020-03-14 16:39 | disposition home or self-care (01) ==
LOC: ER 14:47
DX: R07.89 Other chest pain (principal); I10 Essential (primary) hypertension; Z90.89 Acquired absence of other organs; Z98.890 Other specified postprocedural states; Z88.2 Allergy status to sulfonamides; Z88.8 Allergy status to other drugs, medicaments and biological substances; Z88.0 Allergy status to penicillin; Z79.899 Other long term (current) drug therapy; Z79.82 Long term (current) use of aspirin
CPT/HCPCS: 36415; 71045-TC; 80048-TC; 80076-TC; 83880; 84484-TC; 85025-TC

== ENCOUNTER 2021-03-13 21:20 | Emergency (ER) | payer MEDICARE ==
[~2021-03-13] VITALS: Ht 167.6 cm; Wt 97.1 kg
[~2021-03-13 21:20] MED LIST changes: +AMLO-213 PO; -AMLO10TA7 PO; -LISI-604 PO; +LISI20TA31 PO
--- NOTE | 2021-03-13 22:39 | NUR ---
attempted to call lab. no answer
[2021-03-13] MEDS ORDERED: NITROGLYCERIN 0.4 MG/TAB BOTTLE ONE (22:40)
[2021-03-13] MEDS: NITROGLYCERIN 0.4 MG/TAB BOTTLE SL ONE (22:42)
--- NOTE | 2021-03-13 22:46 | NUR ---
lab at bedside
[2021-03-13 23:06] VITALS: BP 164/99
--- NOTE | 2021-03-14 00:19 | NUR ---
PT HARD STICK, SEWAGE PLANT SUPERVISOR AT BEDSIDE FOR BLOOD DRAW
--- NOTE | 2021-03-14 01:12 | NUR ---
PT CONSTANTLY WANDERING AROUND ER WITH DOG. CONSTANTLY NEEDS TO BE REDIRECTED TO ROOM. PT VERY RUDE TOWARDS STAFF. PT STATES HE WANTS TO GO OUTSIDE. AWARE.
--- NOTE | 2021-03-14 01:20 | NUR ---
PT REFUSED FURTHER ATTEMPTS AT BLOOD DRAW. RISKS AND BENEFITS EXPLAINED. PT LEFT ER. AWARE
== END 2021-03-14 03:49 | disposition left against medical advice (07) ==
LOC: ER 21:26
DX: R07.89 Other chest pain (principal); Z76.5 Malingerer [conscious simulation]; I10 Essential (primary) hypertension; Z90.89 Acquired absence of other organs; Z88.2 Allergy status to sulfonamides; Z88.8 Allergy status to other drugs, medicaments and biological substances; Z88.0 Allergy status to penicillin; Z79.899 Other long term (current) drug therapy; Z79.82 Long term (current) use of aspirin
CPT/HCPCS: 71045-TC

== ENCOUNTER 2023-02-16 19:27 | Emergency (ER) | payer MEDICARE ==
[~2023-02-16] VITALS: Ht 167.6 cm; Wt 96.2 kg
[2023-02-16 20:17] VITALS: BP 146/71
--- NOTE | 2023-02-16 20:46 | NUR ---
BIBS FROM HOME C/O CP X 2 DAYS. PT A/OX4. TOLERATING R/A WELL WITH NO RESP DISTRESS. CONNECTED PT TO POX AND MONITOR. SAFETY MEASURES IN PLACE.
--- NOTE | 2023-02-16 21:00 | NUR ---
PT REFUSED BLOOD WORK AND XRAY DR VERNELL PINEDA AWARE
--- NOTE | 2023-02-16 21:05 | NUR ---
Patient does not wish to proceed with medical care recommended by Dr. Vines. Patient given information related to possible complications, up to and including , which could occur as a result of leaving the hospital at this time. Patient verbalizes understanding of risks involved due to leaving against medical advice. Patient has refused to sign AMA form.
== END 2023-02-16 21:05 | disposition left against medical advice (07) ==
LOC: ER 19:28
DX: R07.89 Other chest pain (principal); G89.29 Other chronic pain; I10 Essential (primary) hypertension; I25.10 Atherosclerotic heart disease of native coronary artery without angina pectoris; Z90.49 Acquired absence of other specified parts of digestive tract; Z60.2 Problems related to living alone; Z79.899 Other long term (current) drug therapy; Z79.82 Long term (current) use of aspirin; Z88.2 Allergy status to sulfonamides; Z88.0 Allergy status to penicillin; Z91.040 Latex allergy status

== ENCOUNTER 2024-03-21 06:05 | Emergency (ER) | payer MEDICARE ==
[~2024-03-21] VITALS: Ht 167.6 cm; Wt 97.5 kg
[2024-03-21 09:31] LABS: BASOPHILS % (AUTO) 0.3 % (0.0-2.0); EOSINOPHILS # (AUTO) 0.1 K/uL (0.0-0.7); EOSINOPHILS % (AUTO) 3.3 % (0.0-6.0); HEMATOCRIT 30 % (39-51); HEMOGLOBIN 9.8 g/dL (13.5-17.5); LYMPHOCYTES # (AUTO) 0.7 K/uL (0.8-4.8); MEAN CORPUSCULAR HEMOGLOBIN 26 PG (26.0-33.0); MEAN CORPUSCULAR HGB CONC 32 g/dl (31.0-36.0); MEAN CORPUSCULAR VOLUME 82 fL (80-96); MONOCYTES # (AUTO) 0.3 K/uL (0.1-1.30); NEUTROPHILS # (AUTO) 2.2 K/uL (1.8-8.9); NEUTROPHILS % (AUTO) 64.4 % (43.0-81.0); PLATELET COUNT (AUTO) 84 K/uL (150-450); RED BLOOD CELL COUNT(AUTO) 3.72 MIL/uL (4.5-6.0); RED CELL DISTRIBUTION WIDTH 18.1 % (11.5-15.0); WHITE BLOOD COUNT (AUTO) 3.4 K/uL (4.3-11.0)
[2024-03-21 09:41] LABS: CALCIUM, SERUM 8.4 mg/dL (8.5-10.1); CARBON DIOXIDE 29 mmol/L (21-32); CHLORIDE 106 mmol/L (98-107); GLUCOSE 90 mg/dL (74-106); POTASSIUM 3.6 mmol/L (3.5-5.1); SODIUM SERUM 138 mmol/L (136-145); UREA NITROGEN, BLOOD 19 mg/dL (7-18)
[2024-03-21 09:54] LABS: NT-PRO BNP 33 pg/mL (0-125)
[2024-03-21 12:41] LABS: ANISOCYTOSIS 1+; BASOPHILS % (MANUAL) 0 % (0.0-2.0); EOSINOPHILS % (MANUAL) 4 % (0-4); LYMPHOCYTES % (MANUAL) 18 % (16-48); MONOCYTES % (MANUAL) 9 % (0-11.0); NEUTROPHILS % (MANUAL) 69 (42-76); OVALOCYTES 1+; PLATELET ESTIMATE DECREASED; TEAR DROP CELLS 1+
[2024-03-21 15:59] VITALS: BP 132/84; TEMP 98; O2SAT 98
== END 2024-03-21 16:00 | disposition home or self-care (01) ==
LOC: ER 06:05
DX: R07.89 Other chest pain (principal); I11.0 Hypertensive heart disease with heart failure; I50.9 Heart failure, unspecified; E78.5 Hyperlipidemia, unspecified; I48.0 Paroxysmal atrial fibrillation; Z85.6 Personal history of leukemia; Z87.39 Personal history of other diseases of the musculoskeletal system and connective tissue; Z90.49 Acquired absence of other specified parts of digestive tract; Z88.0 Allergy status to penicillin; Z91.040 Latex allergy status; Z88.2 Allergy status to sulfonamides; Z60.2 Problems related to living alone
CPT/HCPCS: 36415; 71045-TC; 80048-TC; 83880; 84484-TC; 85025-TC

== ENCOUNTER 2024-03-21 17:49 | Emergency (ER) | payer MEDICARE ==
[~2024-03-21] VITALS: Ht 167.6 cm; Wt 97.5 kg
[2024-03-21 19:17] LABS: BASOPHILS % (AUTO) 0.7 % (0.0-2.0); EOSINOPHILS # (AUTO) 0.1 K/uL (0.0-0.7); EOSINOPHILS % (AUTO) 3.9 % (0.0-6.0); HEMATOCRIT 32 % (39-51); HEMOGLOBIN 10.3 g/dL (13.5-17.5); LYMPHOCYTES # (AUTO) 0.6 K/uL (0.8-4.8); LYMPHOCYTES % (AUTO) 17.4 % (20.0-44.0); MEAN CORPUSCULAR HEMOGLOBIN 26 PG (26.0-33.0); MEAN CORPUSCULAR HGB CONC 32 g/dl (31.0-36.0); MEAN CORPUSCULAR VOLUME 81 fL (80-96); MONOCYTES # (AUTO) 0.3 K/uL (0.1-1.30); MONOCYTES % (AUTO) 7.2 % (2.0-12.0); NEUTROPHILS # (AUTO) 2.6 K/uL (1.8-8.9); NEUTROPHILS % (AUTO) 70.8 % (43.0-81.0); PLATELET COUNT (AUTO) 92 K/uL (150-450); RED BLOOD CELL COUNT(AUTO) 3.97 MIL/uL (4.5-6.0); RED CELL DISTRIBUTION WIDTH 17.4 % (11.5-15.0); WHITE BLOOD COUNT (AUTO) 3.6 K/uL (4.3-11.0)
[2024-03-21 19:19] LABS: CALCIUM, SERUM 8.4 mg/dL (8.5-10.1); POTASSIUM 3.5 mmol/L (3.5-5.1)
[2024-03-21 19:35] LABS: ALBUMIN 3.5 g/dL (3.4-5.0); BILIRUBIN,DIRECT 0.1 mg/dL (0.0-0.2); BILIRUBIN,TOTAL 0.5 mg/dL (0.2-1.0); TOTAL PROTEIN, SERUM 6.6 g/dL (6.4-8.2)
[2024-03-21] MEDS: ACETAMINOPHEN ES 500 MG TABLET PO ONE (19:51)
[2024-03-21 20:28] VITALS: BP 112/92; TEMP 98.6; O2SAT 97
[2024-03-21 21:10] LABS: BAND % (MANUAL) 1 % (0.0-5.0); EOSINOPHILS % (MANUAL) 5 % (0-4); LYMPHOCYTES % (MANUAL) 10 % (16-48); MONOCYTES % (MANUAL) 8 % (0-11.0); NEUTROPHILS % (MANUAL) 76 (42-76)
[2024-03-21 21:11] LABS: ANISOCYTOSIS 1+; OVALOCYTES 1+; PLATELET ESTIMATE DECREASED
== END 2024-03-21 20:38 | disposition home or self-care (01) ==
LOC: EDUNIT# 17:49 → ER 17:56
DX: R55 Syncope and collapse (principal); I10 Essential (primary) hypertension; Z85.6 Personal history of leukemia; Z90.49 Acquired absence of other specified parts of digestive tract; Z88.2 Allergy status to sulfonamides; Z91.040 Latex allergy status; Z88.0 Allergy status to penicillin; Z60.2 Problems related to living alone
CPT/HCPCS: 36415; 71045-TC; 80048-TC; 80076-TC; 82962-TC; 83880; 84484-TC; 85025-TC

== ENCOUNTER 2024-08-17 21:42 | Emergency (ER) | payer MEDICARE | END 2024-08-17 23:57 | disposition left against medical advice (07) | LOC: ER 21:50 | DX: R07.89 Other chest pain (principal); Z53.21 Procedure and treatment not carried out due to patient leaving prior to being seen by health care provider ==

== ENCOUNTER 2024-08-18 00:24 | Emergency (ER) | payer MEDICARE ==
[~2024-08-18] VITALS: Ht 167.6 cm; Wt 72.6 kg
[2024-08-18 02:08] LABS: CARBON DIOXIDE 27 mmol/L (21-32); CHLORIDE 108 mmol/L (98-107); CREATININE 0.8 mg/dL (0.6-1.3); GLUCOSE 92 mg/dL (74-106); SODIUM SERUM 141 mmol/L (136-145); UREA NITROGEN, BLOOD 21 mg/dL (7-18)
[2024-08-18 02:13] LABS: ALANINE AMINOTRANSFERASE 30 U/L (12-78); ALBUMIN 3.6 g/dL (3.4-5.0); ALKALINE PHOSPHATASE 147 U/L (46-116); ASPARTATE AMINOTRANSFERASE 30 U/L (15-37); BILIRUBIN,DIRECT 0.1 mg/dL (0.0-0.2); BILIRUBIN,TOTAL 0.3 mg/dL (0.2-1.0); TOTAL PROTEIN, SERUM 7.2 g/dL (6.4-8.2)
[2024-08-18 02:43] LABS: BASOPHILS % (AUTO) 0.3 % (0.0-2.0); EOSINOPHILS # (AUTO) 0.1 K/uL (0.0-0.7); EOSINOPHILS % (AUTO) 3.4 % (0.0-6.0); HEMATOCRIT 33 % (39-51); HEMOGLOBIN 10.5 g/dL (13.5-17.5); LYMPHOCYTES # (AUTO) 0.8 K/uL (0.8-4.8); LYMPHOCYTES % (AUTO) 23.5 % (20.0-44.0); MEAN CORPUSCULAR HEMOGLOBIN 25 PG (26.0-33.0); MEAN CORPUSCULAR HGB CONC 32 g/dl (31.0-36.0); MEAN CORPUSCULAR VOLUME 79 fL (80-96); MONOCYTES # (AUTO) 0.3 K/uL (0.1-1.30); NEUTROPHILS # (AUTO) 2.1 K/uL (1.8-8.9); NEUTROPHILS % (AUTO) 62.8 % (43.0-81.0); PLATELET COUNT (AUTO) 116 K/uL (150-450); RED BLOOD CELL COUNT(AUTO) 4.16 MIL/uL (4.5-6.0); RED CELL DISTRIBUTION WIDTH 17.2 % (11.5-15.0); WHITE BLOOD COUNT (AUTO) 3.3 K/uL (4.3-11.0)
[2024-08-18 02:57] LABS: INR 0.98 (0.91-1.10); PROTHROMBIN TIME 10.4 SECS (9.2-11.1)
[2024-08-18 04:34] VITALS: BP 145/89; TEMP 98; O2SAT 98
== END 2024-08-18 04:34 | disposition home or self-care (01) ==
LOC: ER 00:29
DX: G89.29 Other chronic pain (principal); R07.9 Chest pain, unspecified; R94.31 Abnormal electrocardiogram [ECG] [EKG]; I10 Essential (primary) hypertension; I71.9 Aortic aneurysm of unspecified site, without rupture; Z79.899 Other long term (current) drug therapy; Z88.0 Allergy status to penicillin; Z88.2 Allergy status to sulfonamides; Z88.8 Allergy status to other drugs, medicaments and biological substances; Z90.49 Acquired absence of other specified parts of digestive tract; Z90.89 Acquired absence of other organs; Z91.041 Radiographic dye allergy status; Z85.6 Personal history of leukemia; Z87.39 Personal history of other diseases of the musculoskeletal system and connective tissue; Z60.2 Problems related to living alone
CPT/HCPCS: 36415; 71045-TC; 80048-TC; 80076-TC; 84484-TC; 85025-TC; 85730-TC

== ENCOUNTER 2024-08-18 08:20 | Emergency (ER) | payer MEDICARE ==
[~2024-08-18] VITALS: Ht 320 cm; Wt 96.2 kg
[2024-08-18 10:03] VITALS: BP 155/76; TEMP 97.9; O2SAT 96
== END 2024-08-18 10:03 | disposition home or self-care (01) ==
LOC: ER 08:29
DX: G89.29 Other chronic pain (principal); R07.89 Other chest pain; E78.5 Hyperlipidemia, unspecified; I11.0 Hypertensive heart disease with heart failure; I50.9 Heart failure, unspecified; I25.10 Atherosclerotic heart disease of native coronary artery without angina pectoris; I45.10 Unspecified right bundle-branch block; I48.0 Paroxysmal atrial fibrillation; Z79.899 Other long term (current) drug therapy; Z88.0 Allergy status to penicillin; Z88.2 Allergy status to sulfonamides; Z88.8 Allergy status to other drugs, medicaments and biological substances; Z90.49 Acquired absence of other specified parts of digestive tract; Z90.89 Acquired absence of other organs; Z91.041 Radiographic dye allergy status; Z95.5 Presence of coronary angioplasty implant and graft; Z85.6 Personal history of leukemia; Z87.39 Personal history of other diseases of the musculoskeletal system and connective tissue; Z60.2 Problems related to living alone
CPT/HCPCS: 71045-TC

== ENCOUNTER 2024-09-05 20:36 | Emergency (ER) | payer MEDICARE ==
[~2024-09-05] VITALS: Ht 165.1 cm; Wt 77.1 kg
[2024-09-05 21:04] VITALS: TEMP 98.2
[2024-09-05 21:30] VITALS: BP 149/80; O2SAT 99
[2024-09-05 21:44] LABS: EOSINOPHILS # (AUTO) 0.1 K/uL (0.0-0.7); EOSINOPHILS % (AUTO) 2.8 % (0.0-6.0); HEMATOCRIT 33 % (39-51); HEMOGLOBIN 10.4 g/dL (13.5-17.5); LYMPHOCYTES % (AUTO) 21.5 % (20.0-44.0); MEAN CORPUSCULAR HEMOGLOBIN 25 PG (26.0-33.0); MEAN CORPUSCULAR HGB CONC 32 g/dl (31.0-36.0); MEAN CORPUSCULAR VOLUME 80 fL (80-96); MONOCYTES # (AUTO) 0.3 K/uL (0.1-1.30); MONOCYTES % (AUTO) 6.5 % (2.0-12.0); NEUTROPHILS # (AUTO) 3.2 K/uL (1.8-8.9); NEUTROPHILS % (AUTO) 68.2 % (43.0-81.0); PLATELET COUNT (AUTO) 117 K/uL (150-450); RED BLOOD CELL COUNT(AUTO) 4.12 MIL/uL (4.5-6.0); WHITE BLOOD COUNT (AUTO) 4.7 K/uL (4.3-11.0)
[2024-09-05 21:55] LABS: CALCIUM, SERUM 9.1 mg/dL (8.5-10.1); CARBON DIOXIDE 28 mmol/L (21-32); CHLORIDE 106 mmol/L (98-107); CREATININE 1.2 mg/dL (0.6-1.3); GLUCOSE 119 mg/dL (74-106); POTASSIUM 3.7 mmol/L (3.5-5.1); SODIUM SERUM 141 mmol/L (136-145); UREA NITROGEN, BLOOD 24 mg/dL (7-18)
[2024-09-05 22:08] LABS: NT-PRO BNP 102 pg/mL (0-125)
== END 2024-09-06 00:23 | disposition home or self-care (01) ==
LOC: ER 20:38
DX: R07.89 Other chest pain (principal); I11.0 Hypertensive heart disease with heart failure; I50.9 Heart failure, unspecified; I25.10 Atherosclerotic heart disease of native coronary artery without angina pectoris; I48.0 Paroxysmal atrial fibrillation; G89.29 Other chronic pain; E78.5 Hyperlipidemia, unspecified; Z91.041 Radiographic dye allergy status; Z90.89 Acquired absence of other organs; Z90.49 Acquired absence of other specified parts of digestive tract; Z79.899 Other long term (current) drug therapy; Z79.82 Long term (current) use of aspirin; Z79.02 Long term (current) use of antithrombotics/antiplatelets; Z88.8 Allergy status to other drugs, medicaments and biological substances; Z88.0 Allergy status to penicillin; Z88.2 Allergy status to sulfonamides
CPT/HCPCS: 36415; 71045-TC; 80048-TC; 83880; 84484-TC; 85025-TC

== ENCOUNTER 2024-09-15 10:56 | Emergency (ER) | payer MEDICARE ==
[~2024-09-15] VITALS: Ht 167.6 cm; Wt 96.2 kg
[2024-09-15 12:45] LABS: BASOPHILS % (AUTO) 0.3 % (0.0-2.0); EOSINOPHILS # (AUTO) 0.1 K/uL (0.0-0.7); EOSINOPHILS % (AUTO) 2.7 % (0.0-6.0); HEMATOCRIT 32 % (39-51); HEMOGLOBIN 10.2 g/dL (13.5-17.5); LYMPHOCYTES # (AUTO) 0.8 K/uL (0.8-4.8); LYMPHOCYTES % (AUTO) 16.6 % (20.0-44.0); MEAN CORPUSCULAR HEMOGLOBIN 26 PG (26.0-33.0); MEAN CORPUSCULAR HGB CONC 32 g/dl (31.0-36.0); MEAN CORPUSCULAR VOLUME 80 fL (80-96); MONOCYTES # (AUTO) 0.4 K/uL (0.1-1.30); NEUTROPHILS # (AUTO) 3.4 K/uL (1.8-8.9); NEUTROPHILS % (AUTO) 71.4 % (43.0-81.0); PLATELET COUNT (AUTO) 124 K/uL (150-450); RED BLOOD CELL COUNT(AUTO) 3.98 MIL/uL (4.5-6.0); RED CELL DISTRIBUTION WIDTH 18.1 % (11.5-15.0); WHITE BLOOD COUNT (AUTO) 4.7 K/uL (4.3-11.0)
[2024-09-15 13:06] LABS: CALCIUM, SERUM 8.5 mg/dL (8.5-10.1); CARBON DIOXIDE 27 mmol/L (21-32); CHLORIDE 108 mmol/L (98-107); CREATININE 0.7 mg/dL (0.6-1.3); GLUCOSE 116 mg/dL (74-106); SODIUM SERUM 139 mmol/L (136-145); UREA NITROGEN, BLOOD 23 mg/dL (7-18)
[2024-09-15 13:12] LABS: NT-PRO BNP 116 pg/mL (0-125)
[2024-09-15 15:19] VITALS: BP 157/68; TEMP 98.2; O2SAT 97
== END 2024-09-15 15:20 | disposition home or self-care (01) ==
LOC: ER 11:05
DX: G89.29 Other chronic pain (principal); R07.89 Other chest pain; I11.0 Hypertensive heart disease with heart failure; I25.10 Atherosclerotic heart disease of native coronary artery without angina pectoris; I50.9 Heart failure, unspecified; E78.5 Hyperlipidemia, unspecified; I48.0 Paroxysmal atrial fibrillation; Z90.89 Acquired absence of other organs; Z90.49 Acquired absence of other specified parts of digestive tract; Z76.5 Malingerer [conscious simulation]; Z79.02 Long term (current) use of antithrombotics/antiplatelets; Z79.82 Long term (current) use of aspirin; Z79.899 Other long term (current) drug therapy; Z88.8 Allergy status to other drugs, medicaments and biological substances; Z91.041 Radiographic dye allergy status; Z88.0 Allergy status to penicillin; Z88.2 Allergy status to sulfonamides
CPT/HCPCS: 36415; 71045-TC; 80048-TC; 83880; 84484-TC; 85025-TC